=== PATIENT | female | born 1945 | race Caucasian/White ===

== ENCOUNTER 2016-08-08 12:36 | Emergency (ER) | payer MEDICARE, BC ==
[2016-08-08 13:28] VITALS: BP 127/76
[2016-08-08] MEDS ORDERED: Ketorolac 60 MG/2 ML SDV IM ONE (14:06)
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
--- NOTE | 2016-08-08 14:27 | CR ---
Left shoulder There is normal alignment of the glenohumeral as well as AC joints. There is no evidence for fractur e. There is calcification within the soft tissues adjacent to the greater tuberosity. Impression: 1. Soft tissue calcification consistent with calcific bursitis versus tendinitis. 2. No acute findings.
== END 2016-08-08 15:28 | disposition home or self-care (01) ==
LOC: JP.ED 12:36
DX: M77.9 Enthesopathy, unspecified (principal); I10 Essential (primary) hypertension; Z95.0 Presence of cardiac pacemaker; Z98.51 Tubal ligation status; Z98.890 Other specified postprocedural states; Z79.899 Other long term (current) drug therapy; Z88.8 Allergy status to other drugs, medicaments and biological substances; Z91.040 Latex allergy status; W18.40XA Slipping, tripping and stumbling without falling, unspecified, initial encounter
CPT/HCPCS: 36415; 73030; 85025; 96372; 99284; J1885; 99283

== ENCOUNTER 2016-09-16 10:05 | Emergency (ER) | payer MEDICARE, BC ==
[2016-09-16 12:29] VITALS: BP 133/86
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
== END 2016-09-16 14:02 ==
LOC: JP.ED 10:05
DX: I21.4 Non-ST elevation (NSTEMI) myocardial infarction (principal); I10 Essential (primary) hypertension; I42.9 Cardiomyopathy, unspecified; Z98.51 Tubal ligation status; Z95.0 Presence of cardiac pacemaker; Z79.899 Other long term (current) drug therapy; Z88.8 Allergy status to other drugs, medicaments and biological substances
CPT/HCPCS: 36415; 80053; 84484; 85025; 85610; 85730; 93005; 93010; 99285; 99285-25

== ENCOUNTER 2017-06-06 07:20 | Emergency (ER) | payer MEDICARE, BC ==
[2017-06-06 07:37] VITALS: BP 104/74
--- NOTE | 2017-06-06 09:05 | CR ---
Elbow Min 3V Rt FINDINGS: There is normal alignment. There is no evidence of fracture. No significant degenerative fi ndings are demonstrated. There is no joint effusion. The soft tissues appear unremarkable. IMPRESSION: Negative exam of the elbow.
--- NOTE | 2017-06-06 09:05 | CR ---
Knee Min 4V Rt FINDINGS:There is normal alignment. There is no fracture. There is no evidence of joint effusion. The soft tissues are unremarkable. The joint space is adequately maintained. IMPRESSION: Negative exam of the knee.
--- NOTE | 2017-06-06 09:07 | CR ---
Chest with right RIBS There is a cardiac pacemaker on the left. There are 2 intact leads. The heart and vascular structures are within normal limits. There are no infiltrates or effusions. The ribs demonstrate normal alignme nt. No fractures are seen. Impression: 1. No acute findings.
[2017-06-06] MEDS ORDERED: Ketorolac 30 MG/ML SDV IVPUSH ONE (09:20)
[2017-06-06] MEDS ORDERED: Bacitracin Oint 1 GM U/D Packet TOP ONE (09:21)
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
[2017-06-06] MEDS ORDERED: Acetaminophen/oxyCODONE 325-5 MG Tab PO ONE (09:32)
== END 2017-06-06 10:20 | disposition home or self-care (01) ==
LOC: JP.ED 07:20
DX: S51.011A Laceration without foreign body of right elbow, initial encounter (principal); S20.211A Contusion of right front wall of thorax, initial encounter; S80.01XA Contusion of right knee, initial encounter; I10 Essential (primary) hypertension; Z88.8 Allergy status to other drugs, medicaments and biological substances; Z91.040 Latex allergy status; Z79.899 Other long term (current) drug therapy; Z79.82 Long term (current) use of aspirin; W22.8XXA Striking against or struck by other objects, initial encounter
CPT/HCPCS: 71101; 73080; 73564; 96374; 99284; A9270; J1885

== ENCOUNTER 2018-06-27 13:50 | Emergency (ER) | payer MEDICARE, BC ==
[2018-06-27] MEDS ORDERED: Sodium Chloride 0.9% 1,000 ML IV SCH (14:45)
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
[2018-06-27] MEDS ORDERED: fentaNYL 100 MCG/2 ML SDV IVPUSH ONE (14:57)
[2018-06-27] MEDS: Sodium Chloride 0.9% 10 ML Syringe FLUSH PRN ×3 (15:10→15:30)
[2018-06-27] MEDS: Sodium Chloride 0.9% 100 ML IV SCH ×2 (15:28→15:30)
[2018-06-27] MEDS: Iopamidol 612 MG/ML 100 ML Bottle IV SCH ×2 (15:28→15:30)
--- NOTE | 2018-06-27 15:47 | CRLCT ---
INDICATION: epigastric pain CT ABDOMEN AND PELVIS WITH CONTRAST TECHNIQUE: Multidetector CT imaging was performed through the abdomen and pelvis following intravenous contrast administration using 100 mL Isovue 300. Coronal and sagittal reconstructions were generated. COMPARISON: None. FINDINGS: Lower chest: Minimal right basilar lung atelectasis. Cardiac pacemaker. Liver: Within normal limits. Gallbladder and bile ducts: Partially contracted gallbladder. No gallbladder wall thickening or calcified gallstones. No biliary dilation identified. Pancreas: Unremarkable. Spleen: Normal. Adrenals: No nodules or masses. 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 No suspicious renal masses or hydronephrosis. No bladder mass or definite wall thickening. Gastrointestinal tract: Postoperative changes at the esophagogastric junction consistent with prior Derrek fundoplication. Nonspecific mild distention of the stomach with gas and fluid. Normal caliber small bowel without wall thickening or obstruction. Multiple sigmoid colon diverticula without evidence of diverticulitis. Vascular structures: Normal for age. Peritoneum: No free air, abscess, or significant free fluid. Lymph nodes: No pathologically enlarged nodes identified. Reproductive organs: Small calcifications within the uterus consistent with small degenerated fibroids. Bones: Mild spinal degenerative changes. IMPRESSION: 1. No acute abnormality identified. No cause for the patient`s symptoms is demonstrated. 2. Nonacute findings as detailed above. FAREED VARGAS MD [employer] Dictated by Kermit Vargas MD @ 06/27/2018 3:46:00 PM Dictated by: Kermit Vargas MD @ 06/27/2018 15:46:31 (Electronically Signed)
[2018-06-27] MEDS ORDERED: HYDROmorphone 1 MG/ML Syringe IVPUSH ONE (15:48)
[2018-06-27 17:54] VITALS: BP 124/67
== END 2018-06-27 17:55 | disposition home or self-care (01) ==
LOC: JP.ED 13:50
DX: R10.13 Epigastric pain (principal); Z79.899 Other long term (current) drug therapy; Z91.040 Latex allergy status; Z88.8 Allergy status to other drugs, medicaments and biological substances
CPT/HCPCS: 36415; 74177; 80053; 81001; 83605; 84484; 85025; 96361; 96374; 96375; 99284; J1170; J3010; J7030; Q9967

== ENCOUNTER 2018-06-29 06:40 | Day surgery (SDC) | payer MEDICARE, BC ==
[2018-06-29] MEDS ORDERED: Propofol 200 MG/20 ML SDV ONE (07:26)
[2018-06-29] MEDS ORDERED: Ondansetron 4 MG/2 ML SDV ONE (07:26)
[2018-06-29] MEDS ORDERED: Dexamethasone 4 MG/ML SDV ONE (07:26)
[2018-06-29] MEDS ORDERED: Glycopyrrolate 0.2 MG/ML 5 ML MDV ONE (07:26)
[2018-06-29] MEDS ORDERED: Neostigmine Methylsulfate 1 MG/ML 5 ML Syringe ONE (07:26)
[2018-06-29] MEDS ORDERED: Rocuronium 50 MG/5 ML Vial ONE (07:26)
[2018-06-29] MEDS ORDERED: Succinylcholine 200 MG/10 ML MDV ONE (07:26)
[2018-06-29] MEDS ORDERED: fentaNYL 250 MCG/5 ML SDV ONE (07:29)
[2018-06-29] MEDS ORDERED: Sodium Chloride 0.9% 1,000 ML IV SCH (07:45)
[2018-06-29] MEDS ORDERED: metroNIDAZOLE/Normal Saline 500 MG in Premix Bag 1 BAG IV ONE (07:45)
[2018-06-29] MEDS ORDERED: diphenhydrAMINE 50 MG/ML SDV IVPUSH PRN (07:50)
[2018-06-29] MEDS ORDERED: Zolpidem 5 MG Tab PO PRN (07:50)
[2018-06-29] MEDS ORDERED: Docusate Sodium 100 MG Cap PO PRN (07:50)
[2018-06-29] MEDS ORDERED: hydrOXYzine HCl 100 MG/2 ML SDV IM PRN (07:50)
[2018-06-29] MEDS ORDERED: Benzocaine/Cetylpyridinium/Menthol Lozenge MUCMEM PRN (07:50)
[2018-06-29] MEDS ORDERED: ceFAZolin 2 GM in Premix Bag 1 BAG IV ONE (07:55)
[2018-06-29] MEDS ORDERED: Ropivacaine 31 ML, Dexamethasone 8 MG, EPINEPHrine 0.4 MG, Sodium Chloride 0.9% 46.6 ML NERVRT SCH ×4 (08:00)
[2018-06-29] MEDS ORDERED: Bupivacaine 0.5% 50 ML MDV ONE (08:48)
[2018-06-29] MEDS ORDERED: Lidocaine 1% with EPINEPHrine 1:100,000 50 ML MDV ONE (08:49)
[2018-06-29] MEDS ORDERED: Ketorolac 60 MG/2 ML SDV ONE (08:57)
[2018-06-29] MEDS ORDERED: Sugammadex Sodium 200 MG/2 ML VIAL ONE (09:11)
[2018-06-29] MEDS ORDERED: Acetaminophen/HYDROcodone 325-5 MG Tab PO PRN (10:26)
--- NOTE | 2018-06-29 15:03 | OR ---
DATE OF PROCEDURE: 06/29/2018 SURGEON: Vito Steiner MD PROCEDURE: Laparoscopic cholecystectomy. PREOPERATIVE DIAGNOSES: Cholelithiasis, cholecystitis. POSTOPERATIVE DIAGNOSES: Cholelithiasis, cholecystitis. RISKS: Risks, benefits, alternatives, and limitations including, but not limited to infection, bleeding, perforation of abdominal structures, requirement for open surgery, cystic duct leak, or common bile duct injury were explained to the patient, who wished to proceed. PROCEDURE IN DETAIL: The patient was placed in supine position. A supraumbilical curvilinear incision was made. A Veress needle was used to enter the abdomen without abnormality and a drop test was performed without abnormality. Two additional 5 and a 10 mm port were entered under direct visualization. The gallbladder was retracted cephalad. The infundibulum was retracted inferolaterally. Using blunt dissection, a "clear view" of the gallbladder was obtained with a single pulsatile structure entering the gallbladder and a single nonpulsatile structure entering the gallbladder. The duct and artery were doubly clipped x3. The clips were all the way across the tubular structures. The remaining one-third of the gallbladder was removed off the gallbladder bed without difficulty. The gallbladder was then delivered through the superior port without difficulty. The gallbladder bed was inspected. No evidence of bleeding or abnormality. The patient also requested review of her hiatal hernia repair. Lifting up the liver, there were dense adhesions and the wrap appeared to be intact, however, could not be investigated further due to the current setup of this surgery, and will be further evaluated with a CT scan. The ports were removed and repaired with 0 Vicryl and 4-0 Vicryl. Dressings were applied. The patient tolerated the procedure well. Vito Steiner MD /[id number]
[2018-06-29 16:51] VITALS: BP 104/59
== END 2018-06-29 17:30 ==
LOC: JP.SDS 06:40 → JP.2SS 07:50 → JP.SDS 17:30
PROVIDERS: ATTEND Surgery
DX: K81.1 Chronic cholecystitis (principal); K44.9 Diaphragmatic hernia without obstruction or gangrene; I11.0 Hypertensive heart disease with heart failure; I50.22 Chronic systolic (congestive) heart failure; Z79.899 Other long term (current) drug therapy
CPT/HCPCS: 36415; 47562; 85027; C9399; J0171; J0330; J0690; J1100; J1885; J2405; J2704; J2710; J2795; J3010; J3410; J3490; J7030; J7050; 88304

== ENCOUNTER 2018-07-03 09:54 | Emergency (ER) | payer MEDICARE, BC ==
[2018-07-03 10:09] VITALS: BP 104/64
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
--- NOTE | 2018-07-03 11:39 | CRLCT ---
INDICATION: Paraesthesias right arm for the last 4 days. COMPARISON: CT head February 02, 2018. TECHNIQUE: CT head without intravenous contrast. FINDINGS: No intracranial hemorrhage. No mass lesions. No evidence of shift of the midline structures. Periventricular low densities secondary to small vessel disease. No interval change. IMPRESSION: 1. No intracranial hemorrhage. 2. No mass lesions or shift of the midline structures. 3. Periventricular low density secondary to small vessel disease. 4. No interval change. Please note that all CT scans at this facility use dose modulation, iterative reconstruction, and/or weight-based dosing when appropriate to reduce radiation dose to as low as reasonably achievable. Dictated by Sandra Cotter MD @ Jul 03 2018 11:33AM Signed by Dr. Sandra Cotter @ Jul 03 2018 11:38AM
== END 2018-07-03 11:54 | disposition home or self-care (01) ==
LOC: JP.ED 09:54
DX: R20.2 Paresthesia of skin (principal); Z79.82 Long term (current) use of aspirin; Z79.899 Other long term (current) drug therapy; Z91.040 Latex allergy status; Z88.8 Allergy status to other drugs, medicaments and biological substances
CPT/HCPCS: 70450; 99283; 99284-25

== ENCOUNTER 2018-07-09 08:45 | Day surgery (SDC) | payer MEDICARE, BC ==
[~2018-07-09 08:45] MED LIST: Midazolam 1 MG/ML 2 ML SDV ONE; Propofol 200 MG/20 ML SDV ONE; fentaNYL 100 MCG/2 ML SDV ONE
[2018-07-09] MEDS ORDERED: Dextrose 5%-Lactated Ringers 1,000 ML IV SCH (09:30)
[2018-07-09] MEDS ORDERED: Pantoprazole 40 MG Vial IVPUSH ONE (11:55)
[2018-07-09 13:04] VITALS: BP 105/57
--- NOTE | 2018-07-16 13:44 | OR ---
DATE OF PROCEDURE: 07/09/2018 PREOPERATIVE DIAGNOSIS: Epigastric pain. POSTOPERATIVE DIAGNOSIS: Epigastric pain associated with mild to moderate distal gastritis. OPERATIVE PROCEDURE: Esophagogastroduodenoscopy with antral biopsies for CLOtest. ANESTHESIA: IV sedation. INDICATION FOR PROCEDURE: A 73-year-old status post a laparoscopic cholecystectomy per Dr. Steiner on 06/29/2018. She also previously had a Derrek fundoplication around 10 years ago. She presents now with ongoing epigastric burning pain and is referred for upper GI endoscopy. Potential risks of the procedure including bleeding and perforation were discussed, and the patient wishes to proceed. DETAILS OF PROCEDURE: The patient was taken to the operating room, placed in a left lateral decubitus position. IV sedation was administered, after which the upper GI endoscope was passed orally through the length of the esophagus and the stomach with retroflexion view of the fundus, and thereafter through the pyloric channel into the proximal duodenum. Findings included normal hypopharynx, larynx, upper esophageal sphincter, and esophageal body. At the EG junction, no significant hiatal hernia was noted. The patient had a persistent Derrek effect and no significant inflammation was noted at the esophagogastric junction. Within the stomach, a small amount of retained bile was present in the distal body of the stomach and extending into the antrum. There was [id number] gastritis with patchy reddened areas. No erosions or ulcers were seen. The pyloric channel and the duodenum junction of the third and fourth portions were unremarkable. At this point, biopsies were obtained from the antrum and sent for CLOtest for H. pylori. Minimal bleeding from the biopsy sites was seen and the procedure was then concluded. The patient was taken to the recovery room in satisfactory condition. The patient will be given Protonix 40 mg IV in the recovery room and started on Protonix 40 mg daily and these will be called in. and she is instructed she continues somewhat sparingly on a p.r.n. basis as needed for the discomfort. Follow up with Dr. Fay at [facility] on 07/18/2018. Brooks Fay MD /[id number]
== END 2018-07-09 13:15 | disposition home or self-care (01) ==
LOC: JP.SDS 08:45
PROVIDERS: ATTEND Surgery
DX: K29.70 Gastritis, unspecified, without bleeding (principal); I11.0 Hypertensive heart disease with heart failure; I50.9 Heart failure, unspecified; I43 Cardiomyopathy in diseases classified elsewhere; E78.5 Hyperlipidemia, unspecified; Z98.890 Other specified postprocedural states
CPT/HCPCS: 43239; 87081; C9113; J2250; J2704; J3010; J7042

== ENCOUNTER 2018-11-16 14:18 | Emergency (ER) | payer MEDICARE, BC ==
[2018-11-16 14:40] VITALS: BP 114/70; PULSE 86
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
--- NOTE | 2018-11-16 15:42 | CRLCT ---
INDICATION: Syncope with head injury TECHNIQUE: Head CT without contrast. COMPARISON: None FINDINGS: CSF spaces: Within normal limits for age. Brain parenchyma: There are nonspecific low attenuation white matter changes consistent with chronic microvascular disease. No sign of mass, hemorrhage, or midline shift. Skull base and calvarium: The visualized paranasal sinuses and mastoid air cells demonstrate no acute or significant findings. The visualized orbits are grossly unremarkable. No skull fractures. There is intracranial atherosclerosis. IMPRESSION: 1. No acute findings. 2. Nonspecific white matter disease, typical of chronic microvascular disease. Please note that all CT scans at this facility use dose modulation, iterative reconstruction, and/or weight-based dosing when appropriate to reduce radiation dose to as low as reasonably achievable. Dictated by Simran Motta MD @ Nov 16 2018 3:39PM Signed by Dr. Simran Motta @ Nov 16 2018 3:41PM
--- NOTE | 2018-11-16 17:05 | CRLCR ---
INDICATION: Syncope TECHNIQUE: Chest 2 views. COMPARISON: October 16, 2015 FINDINGS: Cardiovascular and mediastinum: Heart size and vasculature are normal in caliber and appearance. Mediastinum is within normal limits. Left-sided AICD appears stable in position and intact. Lungs and pleural spaces: Lungs are clear. No sign of infiltrate or mass. No sign of pleural effusion. No pneumothorax. Bones and soft tissues: Cerclage wires overlie the lower cervical spine. There are surgical clips in the right upper quadrant. IMPRESSION: No sign of acute disease. Dictated by Simran Motta MD @ Nov 16 2018 5:02PM Signed by Dr. Simran Motta @ Nov 16 2018 5:04PM
== END 2018-11-16 17:39 ==
LOC: JP.ED 14:18
DX: R55 Syncope and collapse (principal); I10 Essential (primary) hypertension; Z91.040 Latex allergy status; Z88.8 Allergy status to other drugs, medicaments and biological substances; Z79.899 Other long term (current) drug therapy; Z95.0 Presence of cardiac pacemaker
CPT/HCPCS: 36415; 70450; 71046; 80053; 84484; 85025; 93005; 93010; 99285; 99285-25

== ENCOUNTER 2019-12-17 09:51 | Inpatient (IN) | payer MEDICARE, BC ==
[2019-12-17] MEDS: Dextrose 5%-Lactated Ringers 1,000 ML IV SCH ×2 (11:01→18:20)
[2019-12-17] MEDS ORDERED: Propofol 200 MG/20 ML SDV ONE (11:09)
[2019-12-17] MEDS ORDERED: fentaNYL 100 MCG/2 ML SDV ONE (11:09)
[2019-12-17] MEDS ORDERED: Midazolam 1 MG/ML 2 ML SDV ONE (11:09)
--- NOTE | 2019-12-17 15:52 | CT ---
Abdomen Pelvis wo Cont CLINICAL HISTORY: Abdominal pain, post endoscopy COMPARISON: None. TECHNIQUE: Axial tomographic images are obtained from the dome of the diaphragm to the pubic symphysis without IV contrast enhancement. No oral contrast was used. Auto dosage reduction and iterative reconstruction techniques employed. FINDINGS: The lung bases are clear. There is a small hiatal hernia. Patient has had previous gastric surgery. There is some gaseous distention of the stomach and small bowel. Colon is distended related to prior colonoscopy. There is some thickening of the cecal wall near the tip. The appendix is not definitively identified. The liver shows no mass or biliary dilatation. The gallbladder has been removed. The spleen has a normal size and shape. The pancreas shows no mass or inflammatory change. The adrenal glands appear normal bilaterally. The kidneys show no stones or hydronephrosis. The aorta shows atheromatous plaque without aneurysm. There is no suspicious retroperitoneal adenopathy. There is some scattered uterine calcifications likely related to fibroids. IMPRESSION: Diffuse GI distention due to upper and lower endoscopy There is some cylindrical thickening of the cecum. This may represent a focal colitis
[2019-12-17] MEDS ORDERED: HYDROmorphone 1 MG/ML Syringe IVPUSH ONE (16:00)
[2019-12-17] MEDS ORDERED: HYDROmorphone/Normal Saline 15 MG/30 ML PCA IV PRN (17:12)
[2019-12-17] MEDS ORDERED: Ondansetron 4 MG/2 ML SDV IVPUSH PRN (17:14)
[2019-12-17] MEDS ORDERED: Albuterol 8 GM Inhaler INH PRN (17:25)
[2019-12-17] MEDS ORDERED: Metoprolol Succinate 25 MG Tab.ER PO ONE (18:00)
[2019-12-17] MEDS ORDERED: Naloxone 0.4 MG/ML SDV IV PRN (18:00)
[2019-12-17] MEDS: Montelukast 10 MG Tab PO SCH (22:34)
[2019-12-17] MEDS: Gabapentin 300 MG Cap PO SCH (22:34)
[2019-12-17] MEDS: ENTRESTO PO SCH (22:34)
[2019-12-17] MEDS: Melatonin 3 MG Tab PO SCH (22:34)
[2019-12-17] MEDS: valACYclovir 1,000 MG Tab PO SCH (22:53)
[2019-12-18] MEDS: Pantoprazole 40 MG Tab.CR PO SCH (07:33)
[2019-12-18] MEDS: valACYclovir 1,000 MG Tab PO SCH ×2 (09:41→20:52)
[2019-12-18] MEDS: Aspirin 81 MG Tab.EC PO SCH (09:43)
[2019-12-18] MEDS: Cetirizine 10 MG Tab PO SCH (09:43)
[2019-12-18] MEDS: Gabapentin 300 MG Cap PO SCH ×3 (09:43→20:52)
[2019-12-18] MEDS: Spironolactone 25 MG Tab PO SCH (10:47)
[2019-12-18] MEDS: ENTRESTO PO SCH ×2 (10:47→20:53)
[2019-12-18] MEDS: Metoprolol Succinate 25 MG Tab.ER PO SCH (10:47)
--- NOTE | 2019-12-18 13:05 | PN ---
DATE OF SERVICE: 12/18/2019 SUBJECTIVE: Katelynn remains to have abdominal pain in the left quadrant. She had an EGD and colonoscopy yesterday, which revealed edema, and the colonoscopy revealed colitis. She continues to have pain, and she rates her pain as 3/5. Vital signs have been stable. Remainder of review of systems negative for any pertinent positives and negatives. OBJECTIVE: GENERAL: Katelynn Bill is a pleasant 74-year-old female. VITAL SIGNS: TPR at 0725 is 98.6, 80, 16, blood pressure is 76/42. HEENT: Negative. NECK: Supple. HEART: Regular rate and rhythm. LUNGS: Clear. ABDOMEN: She has marked tenderness in the right mid and lower quadrants. EXTREMITIES: Without peripheral edema. ASSESSMENT: 1. Status post EGD and colonoscopy. Biopsies pending. 2. Colitis. Date 12/17/2019. Surgeon: Brooks Fay MD. PLAN: Consult with Fritz Pereira MD, regarding colitis. Dr. Fay will discuss case with Dr. Pereira. Regular diet. Change status to inpatient for abdominal pain and colitis. We will evaluate p.r.n. or in a.m. Renita Ireland PA-C /[id number]
[2019-12-18] MEDS: Dextrose 5%-Lactated Ringers 1,000 ML IV SCH (13:45)
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
[2019-12-18] MEDS ORDERED: Ciprofloxacin 500 MG Tab PO SCH (15:15)
[2019-12-18] MEDS ORDERED: metroNIDAZOLE 250 MG Tab PO SCH (15:15)
[2019-12-18] MEDS ORDERED: Acetaminophen 325 MG Tab PO PRN (15:20)
[2019-12-18] MEDS ORDERED: Sodium Chloride 0.9% 500 ML IV ONE (15:30)
[2019-12-18] MEDS: metroNIDAZOLE/Normal Saline 500 MG in Premix Bag 1 BAG IV SCH (16:10)
[2019-12-18] MEDS: predniSONE 20 MG Tab PO SCH (16:10)
[2019-12-18] MEDS: Ciprofloxacin in D5W 400 MG in Premix Bag 1 BAG IV SCH ×2 (16:10)
[2019-12-18] MEDS: sulfaSALAzine 500 MG Tab PO SCH ×2 (16:10→21:00)
[2019-12-18] MEDS: Lactobacillus Rhamnosus GG (Probiotic) Cap PO SCH ×2 (16:20→20:52)
[2019-12-18] MEDS: Melatonin 3 MG Tab PO SCH (20:52)
[2019-12-18] MEDS: Montelukast 10 MG Tab PO SCH (20:52)
[2019-12-19] MEDS: Dextrose 5%-Lactated Ringers 1,000 ML IV SCH (00:49)
[2019-12-19] MEDS: metroNIDAZOLE/Normal Saline 500 MG in Premix Bag 1 BAG IV SCH ×3 (00:51→16:54)
[2019-12-19] MEDS: Ciprofloxacin in D5W 400 MG in Premix Bag 1 BAG IV SCH ×4 (04:43→15:32)
[2019-12-19] MEDS: sulfaSALAzine 500 MG Tab PO SCH ×2 (05:01→10:34)
[2019-12-19] MEDS: Gabapentin 300 MG Cap PO SCH ×3 (08:28→20:36)
[2019-12-19] MEDS: Lactobacillus Rhamnosus GG (Probiotic) Cap PO SCH ×2 (08:28→20:36)
[2019-12-19] MEDS: Pantoprazole 40 MG Tab.CR PO SCH (08:29)
[2019-12-19] MEDS: Aspirin 81 MG Tab.EC PO SCH (08:29)
[2019-12-19] MEDS: predniSONE 20 MG Tab PO SCH (08:29)
[2019-12-19] MEDS: ENTRESTO PO SCH ×2 (08:30→20:37)
[2019-12-19] MEDS: valACYclovir 1,000 MG Tab PO SCH ×2 (08:30→20:37)
[2019-12-19] MEDS: Cetirizine 10 MG Tab PO SCH (08:30)
--- NOTE | 2019-12-19 08:52 | PN ---
DATE OF SERVICE: 12/19/2019 SUBJECTIVE: Katelynn reports an increased amount of pain. She has had a temperature max of 101.1, currently her temperature is 96.7. Oral intake 2520 and urine output 3513. She was started on IV Cipro and Flagyl and tolerating that well. Reports having a dried scaly skin lesion on her right cheek that she would like to have removed. Denies any headache, dizziness. No chest pain, shortness of breath, or cough. Pain is most severe in the right lower quadrant and she also has pain in the left lower quadrant. She had 2 bowel movements yesterday. Extremities; no pain. Neuro; negative. Psychiatric; sleeping well. No depression or anxiety. REVIEW OF SYSTEMS: Remainder of review of systems negative for any pertinent positives and negatives. OBJECTIVE: GENERAL: Katelynn Bill is a 74-year-old female. She is alert and orientated. Color pale. VITAL SIGNS: TPR at 0700, 96.7; 68; 16; blood pressure 101/41. HEENT: Negative. NECK: Supple. HEART: Regular rate and rhythm. LUNGS: Clear. ABDOMEN: Remains to be quite tender in the right and left lower quadrant. EXTREMITIES: Without peripheral edema. ASSESSMENT: 1. Colitis. 2. Status post esophagogastroduodenoscopy and colonoscopy. Biopsies pending. Date of procedure: 12/17/2019. PLAN: Appointment to be set up with Brooks Fay MD, for excision of right cheek skin lesion. It was made for 01/01/2020 at 10 a.m. To follow up when discharged with Tequila Bird in 1 week. Biopsies are pending. We will continue IV antibiotics and discharge will be discussed with Fritz Pereira MD. We will evaluate p.r.n. or in a.m. Renita Ireland PA-C /[id number]
--- NOTE | 2019-12-19 10:26 | PCM.CONSN ---
- General Info Date of Service: 12/19/19 Subjective Update: Ms. Bill continues to experience lower abdominal pain, diarrhea has essentially resolved. She did have temperature elevation yesterday to 101 degrees. White blood cell count was elevated, she has remained hemodynamically stable. Functional Status: Reports: Tolerating Diet, Ambulating, Urinating - Review of Systems General: Reports: Fever, Weakness, Chills Pulmonary: Reports: No Symptoms Cardiovascular: Reports: No Symptoms Gastrointestinal: Reports: Abdominal Pain. Denies: Diarrhea, Difficulty Swallowing, Hematochezia, Melena, Nausea, Vomiting Genitourinary: Reports: No Symptoms - Patient Data Vitals - Most Recent: Last Vital Signs Temp 96.7 F L 12/19/19 07:00 Pulse 68 12/19/19 07:00 Resp 16 12/19/19 07:00 BP 101/41 L 12/19/19 07:00 Pulse Ox 98 12/19/19 07:00 Weight - Most Recent: 125 lb I&O - Last 24 Hours: Intake & Output 12/18/19 12/19/19 12/19/19 22:59 06:59 14:59 Intake Total 2540 1864 400 Output Total 1000 1550 700 Balance 1540 314 -300 Mickey Results Last 24 Hours: Microbiology 12/17/19 13:58 Stool Culture - Preliminary Stool / Feces - Stool, Liquid NORMAL ENTERIC JAI 2 DAYS Shiga Toxin I - Final NEGATIVE FOR SHIGA TOXIN 1 Shiga Toxin II - Final NEGATIVE FOR SHIGA TOXIN 2 REFERENCE RANGE: NEGATIVE Clostridioides difficile (PCR) - Final 12/17/19 13:01 CLOtest - Final Stomach NEGATIVE CLOTEST REFERENCE RANGE: NEGATIVE Med Orders - Current: Current Medications Acetaminophen (Tylenol) 650 mg PO Q6H PRN PRN Reason: Fever Last Admin: 12/18/19 16:19 Dose: 650 mg Documented by: Albuterol (Ventolin Hfa) 0 gm INH Q4H PRN PRN Reason: Shortness of Breath Aspirin (Halfprin) 81 mg PO DAILY [facility] Last Admin: 12/19/19 08:29 Dose: 81 mg Documented by: Cetirizine HCl (Zyrtec) 10 mg PO DAILY [facility] Last Admin: 12/19/19 08:30 Dose: 10 mg Documented by: Gabapentin (Neurontin) 300 mg PO TID [facility] Last Admin: 12/19/19 08:28 Dose: 300 mg Documented by: Hydromorphone HCl (Dilaudid [employer] 15 Mg In Ns 30 Ml) 0 mg IV ASDIRECTED PRN; Protocol PRN Reason: JEWELRY BENCH [employer] PAIN CONTROL Last Admin: 12/17/19 17:53 Dose: 15 mg Documented by: Dextrose/Lactated Ringer's (Dextrose 5%-Lactated Ringers) 1,000 mls @ 100 mls/hr IV ASDIRECTED [facility] Last Admin: 12/19/19 00:49 Dose: 100 mls/hr Documented by: Ciprofloxacin/Dextrose 400 mg/ (Premix) 200 mls @ 200 mls/hr IV Q12H [facility] Last Admin: 12/19/19 04:43 Dose: 200 mls/hr Documented by: Metronidazole 500 mg/ Premix 100 mls @ 100 mls/hr IV Q8H [facility] Last Admin: 12/19/19 08:28 Dose: 100 mls/hr Documented by: Lactobacillus Rhamnosus (Culturelle) 1 cap PO BID [facility] Last Admin: 12/19/19 08:28 Dose: 1 cap Documented by: Melatonin (Melatonin) 3 mg PO BEDTIME [facility] Last Admin: 12/18/19 20:52 Dose: 3 mg Documented by: Metoprolol Succinate (Toprol Xl) 25 mg PO DAILY [facility] Last Admin: 12/18/19 10:47 Dose: Not Given Documented by: Montelukast Sodium (Singulair) 10 mg PO BEDTIME [facility] Last Admin: 12/18/19 20:52 Dose: 10 mg Documented by: Naloxone HCl (Narcan) 0.1 mg IV ASDIRECTED PRN PRN Reason: decreased respiratory rate Ondansetron HCl (Zofran) 4 mg IVPUSH Q4H PRN PRN Reason: Nausea Last Admin: 12/17/19 21:27 Dose: 4 mg Documented by: Pantoprazole Sodium (Protonix) 40 mg PO ACBREAKFAST [facility] Last Admin: 12/19/19 08:29 Dose: 40 mg Documented by: Entresto 24mg/26mg (Tab (Ptom)) 1 each PO BID [facility] Last Admin: 12/19/19 08:30 Dose: 1 each Documented by: Spironolactone (Aldactone) 25 mg PO DAILY [facility] Last Admin: 12/18/19 10:47 Dose: Not Given Documented by: Valacyclovir HCl (Valtrex) 500 mg PO BID [facility] Last Admin: 12/19/19 08:30 Dose: 500 mg Documented by: Discontinued Medications Ciprofloxacin (Ciprofloxacin Hcl) 500 mg PO BID [facility] Last Admin: 12/18/19 15:56 Dose: Not Given Documented by: Fentanyl (Sublimaze) Confirm Administered Dose 100 mcg .ROUTE .STK-MED ONE Stop: 12/17/19 11:10 Hydromorphone HCl (Dilaudid) 1 mg IVPUSH ONETIME ONE Stop: 12/17/19 16:01 Last Admin: 12/17/19 15:56 Dose: 1 mg Documented by: Sodium Chloride (Normal Saline) 500 mls @ 250 mls/hr IV .BOLUS ONE Stop: 12/18/19 17:29 Last Admin: 12/18/19 16:00 Dose: 250 mls/hr Documented by: Metoprolol Succinate (Toprol Xl) 25 mg PO ONETIME ONE Stop: 12/17/19 18:01 Last Admin: 12/17/19 18:22 Dose: 25 mg Documented by: Metronidazole (Metronidazole) 500 mg PO Q6H [facility] Last Admin: 12/18/19 15:57 Dose: Not Given Documented by: Midazolam HCl (Versed 1 Mg/Ml) Confirm Administered Dose 2 mg .ROUTE .STK-MED ONE Stop: 12/17/19 11:10 Prednisone (Prednisone) 40 mg PO DAILY [facility] Last Admin: 12/19/19 08:29 Dose: 40 mg Documented by: Propofol (Diprivan 20 Ml) Confirm Administered Dose 200 mg .ROUTE .STK-MED ONE Stop: 12/17/19 11:10 Sulfasalazine (Sulfasalazine) 500 mg PO QID [facility] Last Admin: 12/19/19 05:01 Dose: 500 mg Documented by: - Exam Quality Assessment: DVT Prophylaxis General: Alert, Oriented, Cooperative, Moderate Distress Lungs: Clear to Auscultation, Normal Respiratory Effort Cardiovascular: Regular Rate, Regular Rhythm, No Murmurs GI/Abdominal Exam: Soft, No Organomegaly, Tender. No: Distended, Guarding, Rigid, Rebound Extremities: Non-Tender, No Pedal Edema Sepsis Event Note - Evaluation Sepsis Screening Result: No Definite Risk - Focused Exam Vital Signs: Vital Signs Temp Pulse Resp BP Pulse Ox 12/19/19 07:00 96.7 F L 68 16 101/41 L 98 12/19/19 02:37 97.0 F 66 16 104/54 L 94 L 12/19/19 01:00 93 L 12/18/19 22:43 98.3 F 72 16 85/40 L 94 L Consult PN Assessment/Plan Procedures: Procedures AGENT NOS ASSAY W/OPTIC (03/31/16) AIRWAY INHALATION TREATMENT (03/31/16) ASSAY OF CK (CPK) (10/16/15) ASSAY OF LACTIC ACID (06/27/18) ASSAY OF MAGNESIUM (12/14/13) ASSAY OF NATRIURETIC PEPTIDE (10/16/15) ASSAY OF PHOSPHORUS (12/14/13) ASSAY OF TROPONIN QUANT (11/16/18) BLOOD CULTURE FOR BACTERIA (03/31/16) BREAST TOMOSYNTHESIS BI (12/06/18) C DIFF AMPLIFIED PROBE (03/31/16) CARDIAC REHAB/MONITOR (11/21/16) CARDIOVASCULAR STRESS TEST (07/31/17) CHEST X-RAY 1 VIEW FRONTAL (10/16/15) CHEST X-RAY 2VW FRONTAL&LATL (12/14/13) COMP SCREEN MAMMOGRAM ADD-ON (04/15/16) COMPLETE CBC AUTOMATED (06/29/18) COMPLETE CBC W/AUTO DIFF WBC (11/16/18) COMPREHEN METABOLIC PANEL (11/16/18) COMPUTER DX MAMMOGRAM ADD-ON (01/22/14) CONTRAST X-RAY OF SHOULDER (07/07/17) CT ABD & PELV W/CONTRAST (06/27/18) CT ANGIOGRAPHY HEAD (02/05/18) CT ANGIOGRAPHY NECK (02/05/18) CT HEAD/BRAIN W/O DYE (11/16/18) CT LUMBAR SPINE W/O DYE (02/21/17) CT NECK SPINE W/O DYE (02/21/17) CT THORAX W/DYE (08/03/18) CULTURE AEROBIC IDENTIFY (03/31/16) CULTURE OTHR SPECIMN AEROBIC (03/31/16) CULTURE SCREEN ONLY (07/09/18) DIAGNOSTIC COLONOSCOPY (01/21/15) DRAIN/INJ JOINT/BURSA W/O US (10/20/16) EGD BIOPSY SINGLE/MULTIPLE (07/09/18) ELECTROCARDIOGRAM REPORT (10/16/15) ELECTROCARDIOGRAM TRACING (11/16/18) EMERGENCY DEPT VISIT (11/16/18) EMERGENCY DEPT VISIT (07/03/18) EMERGENCY DEPT VISIT (02/02/18) EMERGENCY DEPT VISIT (06/06/17) EMERGENCY DEPT VISIT (09/16/16) EMERGENCY DEPT VISIT (08/08/16) EMERGENCY DEPT VISIT (03/31/16) EMERGENCY DEPT VISIT (11/04/13) EXTRACRANIAL BILAT STUDY (09/25/18) EXTREMITY STUDY (06/27/16) FUNGI IDENTIFICATION MOLD (03/31/16) HEPATOBIL SYST IMAGE W/DRUG (06/28/18) HOT OR COLD PACKS THERAPY (11/15/19) HT MUSCLE IMAGE SPECT MULT (07/31/17) HYDRATE IV INFUSION ADD-ON (06/27/18) INJ PARAVERT F JNT L/S 1 LEV (10/17/17) INJ TENDON SHEATH/LIGAMENT (10/03/19) INJECTION FOR SHOULDER X-RAY (07/07/17) LAPAROSCOPIC CHOLECYSTECTOMY (06/29/18) MANUAL THERAPY 1/> REGIONS (11/15/19) METABOLIC PANEL TOTAL CA (03/31/16) OFFICE/OUTPATIENT VISIT EST (10/03/19) OFFICE/OUTPATIENT VISIT NEW (08/11/16) POLYSOM 6/>YRS CPAP 4/> PARM (01/15/18) PROTHROMBIN TIME (09/16/16) PT EVAL LOW COMPLEX 20 MIN (11/15/19) PT EVALUATION (12/16/15) PT RE-EVAL EST PLAN CARE (12/13/17) ROUTINE VENIPUNCTURE (11/16/18) SCR MAMMO BI INCL CAD (12/06/18) SMEAR GRAM STAIN (03/31/16) STOOL CULTR AEROBIC BACT EA (03/31/16) THER/PROPH/DIAG INJ IV PUSH (06/27/18) THER/PROPH/DIAG INJ SC/IM (08/08/16) THER/PROPH/DIAG IV INF ADDON (03/31/16) THER/PROPH/DIAG IV INF INIT (03/31/16) THERAPEUTIC EXERCISES (01/03/18) THROMBOPLASTIN TIME PARTIAL (09/16/16) TRANSVAGINAL US NON-OB (06/15/15) TTE W/DOPPLER COMPLETE (02/13/18) TX/PRO/DX INJ NEW DRUG ADDON (06/27/18) TX/PROPH/DG ADDL SEQ IV INF (03/31/16) URINALYSIS AUTO W/SCOPE (06/27/18) US EXAM PELVIC COMPLETE (06/15/15) X-RAY EXAM CHEST 2 VIEWS (11/16/18) X-RAY EXAM HIPS BI 2 VIEWS (09/25/18) X-RAY EXAM KNEE 4 OR MORE (06/06/17) X-RAY EXAM L-2 SPINE 4/>VWS (02/06/17) X-RAY EXAM NECK SPINE 2-3 VW (07/10/18) X-RAY EXAM OF ELBOW (06/06/17) X-RAY EXAM OF FOOT (11/21/19) X-RAY EXAM OF HAND (10/11/18) X-RAY EXAM OF SHOULDER (08/08/16) X-RAY EXAM UNILAT RIBS/CHEST (06/06/17) Problem List Initiated/Reviewed/Updated: Yes My Orders Last 24 Hours: My Active Orders 12/18/19 15:16 Consult to Physical Therapy [PT Evaluation and Treatment] [CONS] Routine 12/18/19 15:18 Blood Culture x2 Reflex Set [OM.PC] Urgent 12/18/19 15:20 Acetaminophen [TylenoL] 650 mg PO Q6H PRN 12/18/19 15:35 CULTURE BLOOD [BC] Urgent 12/18/19 15:40 CULTURE BLOOD [BC] Urgent 12/18/19 16:00 Ciprofloxacin in D5W [Cipro in D5W 400 MG/200 ML] 400 mg Premix Bag 1 bag IV Q12H Lactobacillus Rhamnosus GG [Culturelle] 1 cap PO BID 12/18/19 17:00 metroNIDAZOLE/Normal Saline [Flagyl 500 MG in NS 100 ML] 500 mg Premix Bag 1 bag IV Q8H Plan: ASSESSMENT AND RECOMMENDATIONS [id number] history of diarrhea, evidence of colitis in the right colon noted on colonoscopy. Biopsies from colonoscopy as well as culture results are pending. Seems to be more likely related to infection at this point with fever and elevation in white blood cell count. -Ciprofloxacin and Flagyl pending culture results
[2019-12-19] MEDS ORDERED: Sodium Chloride 0.9% 1,000 ML IV SCH (10:30)
[2019-12-19] MEDS: Spironolactone 25 MG Tab PO SCH (10:32)
[2019-12-19] MEDS: Metoprolol Succinate 25 MG Tab.ER PO SCH (10:32)
[2019-12-19] MEDS: Nystatin Topical Powder 15 GM Bottle TOP SCH ×2 (15:31→20:36)
[2019-12-19] MEDS: Melatonin 3 MG Tab PO SCH (20:36)
[2019-12-19] MEDS: Montelukast 10 MG Tab PO SCH (20:37)
[2019-12-20] MEDS: metroNIDAZOLE/Normal Saline 500 MG in Premix Bag 1 BAG IV SCH ×2 (02:04→09:15)
[2019-12-20] MEDS: Ciprofloxacin in D5W 400 MG in Premix Bag 1 BAG IV SCH ×2 (04:13)
[2019-12-20] MEDS: Pantoprazole 40 MG Tab.CR PO SCH (07:35)
[2019-12-20 07:36] VITALS: BP 106/54; PULSE 65
[2019-12-20] MEDS ORDERED: HYDROmorphone 2 MG Tab PO PRN (08:56)
[2019-12-20] MEDS ORDERED: Magnesium Oxide 400 MG Tab PO SCH (09:00)
[2019-12-20] MEDS: Gabapentin 300 MG Cap PO SCH (09:15)
[2019-12-20] MEDS: Cetirizine 10 MG Tab PO SCH (09:15)
[2019-12-20] MEDS: Lactobacillus Rhamnosus GG (Probiotic) Cap PO SCH (09:15)
[2019-12-20] MEDS: valACYclovir 1,000 MG Tab PO SCH (09:15)
[2019-12-20] MEDS: Aspirin 81 MG Tab.EC PO SCH (09:16)
[2019-12-20] MEDS: Spironolactone 25 MG Tab PO SCH (09:16)
[2019-12-20] MEDS: ENTRESTO PO SCH (09:17)
[2019-12-20] MEDS: Nystatin Topical Powder 15 GM Bottle TOP SCH (09:17)
[2019-12-20] MEDS ORDERED: Magnesium Sulfate/Water 2 GM in Premix Bag 1 BAG IV ONE (09:30)
[2019-12-20] MEDS: Metoprolol Succinate 25 MG Tab.ER PO SCH (09:36)
--- NOTE | 2019-12-20 10:11 | PCM.DCSUM1 ---
Discharge Summary - Hospital Course Brief History: Ms. Bill is a 74-year-old woman who was admitted through the emergency department with severe abdominal pain and diarrhea following colonoscopy, secondary to underlying infectious colitis. - Discharge Data Discharge Date: 12/20/19 Discharge Disposition: Home, Self-Care 01 Condition: Good - Referral to Home Health Primary Care Physician: Tequila Bird CNM - Discharge Diagnosis/Problem(s) (1) Abdominal pain SNOMED Code(s): 87232117 ICD Code: R10.9 - UNSPECIFIED ABDOMINAL PAIN Status: Acute Current Visit: Yes (2) Infectious colitis SNOMED Code(s): 80070147 ICD Code: A09 - INFECTIOUS GASTROENTERITIS AND COLITIS, UNSPECIFIED Status: Acute Current Visit: Yes - Patient Summary/Data Consults: Consultations 12/18/19 08:23 Consult to Physician [CONS] Routine Consulting Provider: Fritz Pereira Call Completed to Consulting Physician: No: Dr. Fay will discuss case 12/18/19 15:16 Consult to Physical Therapy [PT Evaluation and Treatment] [CONS] Routine Please Evaluate and Treat. PT Reason for Consult: L neck and shoulder pain This query below is only for informational purposes and is not editable. Admission Diagnosis/Problem: Abdominal pain Hospital Course: Ms. Bill is a 74-year-old woman who was admitted by Dr. Fay for further management of colitis. She reports that she has had difficulty with diarrhea for the past 2 months, typically about 5 stools per day, no bleeding or evidence of blood in the stool. Eating seems to trigger diarrhea, she has not had regular diarrhea at night. Colonoscopy was performed by Dr. Fay and showed evidence of colitis in the cecum and ascending colon. Biopsies were obtained, results of which are pending at this time. She has had achy pain in the right abdomen over the past 2 months. She denies any fevers chills or sweats. White blood cell count was found to be elevated, cultures from colonoscopy are also pending, C. difficile found to be negative. Because of her severe pain and ongoing diarrhea she was admitted to the hospital for further evaluation and management. She did develop a fever on the day after admission and it was felt most likely that the colitis was infectious in nature. She was started on IV ciprofloxacin as well as IV Flagyl and over the next few days abdominal pain and diarrhea essentially resolved. Prior to discharge she was tolerating a regular diet without significant difficulty. Activity will be as tolerated and she will remain on a regular diet. Follow-up appointment will be scheduled with her primary care provider within 1 week. - Patient Instructions Diet: Usual Diet as Tolerated Activity: As Tolerated Other/Special Instructions: Please schedule follow-up appointment with Tequila Bird within 1 week. - Discharge Plan *PRESCRIPTION DRUG MONITORING PROGRAM REVIEWED*: Not Applicable *COPY OF PRESCRIPTION DRUG MONITORING REPORT IN PATIENT JACINTA: Not Applicable Prescriptions/Med Rec: Ciprofloxacin HCl [Cipro] 500 mg PO BID #14 tablet Lactobacillus Rhamnosus GG [Culturelle] 1 cap PO BID #60 cap metroNIDAZOLE [Flagyl] 500 mg PO Q8H #21 tab Nystatin [Nystop] 60 gm TP TID #60 gm Home Medications: Home Meds Cholecalciferol (Vitamin D3) [Vitamin D] 5,000 unit PO DAILY 11/04/13 [History] Multivit with Calcium,Iron,Min [Essential Daily] 1 tab PO DAILY 11/04/13 [History] Rosuvastatin [Crestor] 10 mg PO DAILY 11/04/13 [History] [place]-3/DHA/Epa/Fish Oil [Fish Oil Dr 500 mg Softgel] 1,000 mg PO DAILY 01/19/15 [History] Fluticasone Propionate [Flonase Allergy Relief] 2 spray CHARBEL DAILY PRN 06/06/17 [History] Gabapentin [Neurontin] 300 mg PO TID 06/06/17 [History] Albuterol [Ventolin HFA] 2 puff INH Q4H PRN 07/31/17 [History] valACYclovir [Valtrex] 500 mg PO BID 10/16/17 [History] Cetirizine [ZyrTEC] 10 mg PO DAILY 06/28/18 [History] Aspirin [Pamela Chewable Aspirin] 81 mg PO DAILY 11/21/19 [History] Sacubitril/Valsartan [Entresto 24 mg-26 mg Tablet] 1 tab PO BID 11/21/19 [History] Benzonatate [Tessalon Perle] 100 mg PO TID 12/13/19 [History] Metoprolol Succinate [Toprol Xl] 25 mg PO DAILY 12/13/19 [History] Montelukast [Singulair] 10 mg PO DAILY 12/13/19 [History] Pantoprazole Sodium [Protonix] 40 mg PO DAILY 12/13/19 [History] Spironolactone [Aldactone] 25 mg PO DAILY 12/13/19 [History] Melatonin 2.5 mg PO BEDTIME 12/17/19 [History] Ciprofloxacin HCl [Cipro] 500 mg PO BID #14 tablet 12/20/19 [Rx] Lactobacillus Rhamnosus GG [Culturelle] 1 cap PO BID #60 cap 12/20/19 [Rx] Nystatin [Nystop] 60 gm TP TID #60 gm 12/20/19 [Rx] metroNIDAZOLE [Flagyl] 500 mg PO Q8H #21 tab 12/20/19 [Rx] Referrals: Tequila Bird CNM [Primary Care Provider] - (Make an appointment in 1 week ) Brooks Fay MD [Physician] - 01/01/20 10:00 am (Appt for Excision of Right CheeK Skin Lesion to be done in clinic with local sedation) - Discharge Summary/Plan Comment DC Time >30 min.: No - Patient Data Vitals - Most Recent: Last Vital Signs Temp 97.9 F 12/20/19 07:35 Pulse 65 12/20/19 07:35 Resp 18 12/20/19 07:35 BP 106/54 L 12/20/19 07:35 Pulse Ox 96 12/20/19 07:35 Weight - Most Recent: 125 lb I&O - Last 24 hours: Intake & Output 12/19/19 12/20/19 12/20/19 22:59 06:59 14:59 Intake Total 1080 500 240 Output Total 1150 600 451 Balance -70 -100 -211 Lab Results - Last 24 hrs: Laboratory Results - last 24 hr 12/20/19 12/20/19 Range/Units 04:20 04:20 WBC 13.7 H (4.5-11.0) K/uL RBC 3.44 (3.30-5.50) M/uL Hgb 10.0 L (12.0-15.0) g/dL Hct 31.9 L (36.0-48.0) % MCV 93 (80-98) fL MCH 29 (27-31) pg MCHC 31 L (32-36) % Plt Count 231 (150-400) K/uL Neut % (Auto) 81 H (36-66) % Lymph % (Auto) 13 L (24-44) % Edmunds % (Auto) 6 (2-6) % Eos % (Auto) 0 L (2-4) % Baso % (Auto) 0 (0-1) % Sodium 143 (140-148) mmol/L Potassium 4.0 (3.6-5.2) mmol/L Chloride 110 H (100-108) mmol/L Carbon Dioxide 24 (21-32) mmol/L Anion Gap 13.0 (5.0-14.0) mmol/L BUN 12 (7-18) mg/dL Creatinine 0.8 (0.6-1.0) mg/dL Est Cr Clr Drug Dosing 49.53 mL/min Estimated GFR (MDRD) > 60 (>60) Glucose 126 H (74-106) mg/dL Calcium 9.0 (8.5-10.1) mg/dL Magnesium 1.7 L (1.8-2.4) mg/dL FRANKY Results - Last 24 hrs: Microbiology 12/17/19 13:58 Stool Culture - Final Stool / Feces - Stool, Liquid NORMAL ENTERIC JAI. NO SALMONELLA, SHIGELLA, CAMPYLOBACTER OR E.COLI O157 ISOLATED. Shiga Toxin I - Final NEGATIVE FOR SHIGA TOXIN 1 Shiga Toxin II - Final NEGATIVE FOR SHIGA TOXIN 2 REFERENCE RANGE: NEGATIVE Clostridioides difficile (PCR) - Final 12/18/19 15:35 Aerobic Blood Culture - Preliminary Blood - Arm, Left NO GROWTH AFTER 1 DAY Anaerobic Blood Culture - Preliminary NO GROWTH AFTER 1 DAY 12/18/19 15:40 Aerobic Blood Culture - Preliminary Blood - Arm, Left NO GROWTH AFTER 1 DAY Anaerobic Blood Culture - Preliminary NO GROWTH AFTER 1 DAY Med Orders - Current: Current Medications Acetaminophen (Tylenol) 650 mg PO Q6H PRN PRN Reason: Fever Last Admin: 12/18/19 16:19 Dose: 650 mg Documented by: Albuterol (Ventolin Hfa) 0 gm INH Q4H PRN PRN Reason: Shortness of Breath Aspirin (Halfprin) 81 mg PO DAILY [facility] Last Admin: 12/20/19 09:16 Dose: 81 mg Documented by: Cetirizine HCl (Zyrtec) 10 mg PO DAILY [facility] Last Admin: 12/20/19 09:15 Dose: 10 mg Documented by: Gabapentin (Neurontin) 300 mg PO TID [facility] Last Admin: 12/20/19 09:15 Dose: 300 mg Documented by: Hydromorphone HCl (Dilaudid) 2 mg PO Q4H PRN PRN Reason: PAIN Last Admin: 12/20/19 09:16 Dose: 2 mg Documented by: Ciprofloxacin/Dextrose 400 mg/ (Premix) 200 mls @ 200 mls/hr IV Q12H [facility] Last Admin: 12/20/19 04:13 Dose: 200 mls/hr Documented by: Metronidazole 500 mg/ Premix 100 mls @ 100 mls/hr IV Q8H [facility] Last Admin: 12/20/19 09:15 Dose: 100 mls/hr Documented by: Sodium Chloride (Normal Saline) 1,000 mls @ 50 mls/hr IV ASDIRECTED [facility] Last Admin: 12/19/19 10:41 Dose: 50 mls/hr Documented by: Magnesium Sulfate 2 gm/ Premix 50 mls @ 25 mls/hr IV ONETIME ONE Stop: 12/20/19 11:29 Last Admin: 12/20/19 09:47 Dose: Not Given Documented by: Lactobacillus Rhamnosus (Culturelle) 1 cap PO BID [facility] Last Admin: 12/20/19 09:15 Dose: 1 cap Documented by: Magnesium Oxide (Magnesium Oxide) 400 mg PO BID [facility] Last Admin: 12/20/19 09:47 Dose: Not Given Documented by: Melatonin (Melatonin) 3 mg PO BEDTIME [facility] Last Admin: 12/19/19 20:36 Dose: 3 mg Documented by: Metoprolol Succinate (Toprol Xl) 25 mg PO DAILY [facility] Last Admin: 12/20/19 09:36 Dose: Not Given Documented by: Montelukast Sodium (Singulair) 10 mg PO BEDTIME [facility] Last Admin: 12/19/19 20:37 Dose: 10 mg Documented by: Nystatin (Nystop) 0 gm TOP TID [facility] Last Admin: 12/20/19 09:17 Dose: 1 applic Documented by: Ondansetron HCl (Zofran) 4 mg IVPUSH Q4H PRN PRN Reason: Nausea Last Admin: 12/17/19 21:27 Dose: 4 mg Documented by: Pantoprazole Sodium (Protonix) 40 mg PO ACBREAKFAST [facility] Last Admin: 12/20/19 07:35 Dose: 40 mg Documented by: Entresto 24mg/26mg (Tab (Ptom)) 1 each PO BID [facility] Last Admin: 12/20/19 09:17 Dose: 1 each Documented by: Spironolactone (Aldactone) 25 mg PO DAILY [facility] Last Admin: 12/20/19 09:16 Dose: 25 mg Documented by: Valacyclovir HCl (Valtrex) 500 mg PO BID [facility] Last Admin: 12/20/19 09:15 Dose: 500 mg Documented by: Discontinued Medications Ciprofloxacin (Ciprofloxacin Hcl) 500 mg PO BID [facility] Last Admin: 12/18/19 15:56 Dose: Not Given Documented by: Fentanyl (Sublimaze) Confirm Administered Dose 100 mcg .ROUTE .STK-MED ONE Stop: 12/17/19 11:10 Hydromorphone HCl (Dilaudid) 1 mg IVPUSH ONETIME ONE Stop: 12/17/19 16:01 Last Admin: 12/17/19 15:56 Dose: 1 mg Documented by: Hydromorphone HCl (Dilaudid Pumping Plant Operator 15 Mg In Ns 30 Ml) 0 mg IV ASDIRECTED PRN; Protocol PRN Reason: [employer]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 Last Admin: 12/17/19 17:53 Dose: 15 mg Documented by: Dextrose/Lactated Ringer's (Dextrose 5%-Lactated Ringers) 1,000 mls @ 100 mls/hr IV ASDIRECTED [facility] Last Admin: 12/19/19 00:49 Dose: 100 mls/hr Documented by: Sodium Chloride (Normal Saline) 500 mls @ 250 mls/hr IV .BOLUS ONE Stop: 12/18/19 17:29 Last Admin: 12/18/19 16:00 Dose: 250 mls/hr Documented by: Metoprolol Succinate (Toprol Xl) 25 mg PO ONETIME ONE Stop: 12/17/19 18:01 Last Admin: 12/17/19 18:22 Dose: 25 mg Documented by: Metronidazole (Metronidazole) 500 mg PO Q6H [facility] Last Admin: 12/18/19 15:57 Dose: Not Given Documented by: Midazolam HCl (Versed 1 Mg/Ml) Confirm Administered Dose 2 mg .ROUTE .STK-MED ONE Stop: 12/17/19 11:10 Naloxone HCl (Narcan) 0.1 mg IV ASDIRECTED PRN PRN Reason: decreased respiratory rate Prednisone (Prednisone) 40 mg PO DAILY [facility] Last Admin: 12/19/19 08:29 Dose: 40 mg Documented by: Propofol (Diprivan 20 Ml) Confirm Administered Dose 200 mg .ROUTE .STK-MED ONE Stop: 12/17/19 11:10 Sulfasalazine (Sulfasalazine) 500 mg PO QID [facility] Last Admin: 12/19/19 10:34 Dose: Not Given Documented by: - Exam General: Reports: Alert, Oriented, Cooperative, No Acute Distress Lungs: Reports: Clear to Auscultation, Normal Respiratory Effort Cardiovascular: Reports: Regular Rate, Regular Rhythm, No Murmurs GI/Abdominal Exam: Soft, Non-Tender, No Organomegaly, No Distention Extremities: Non-Tender, No Pedal Edema
--- NOTE | 2019-12-20 16:52 | PN ---
DATE OF SERVICE: 12/20/2019 The patient has been afebrile with stable vital signs. Oral intake has been fairly good. We will switch her to oral pain medication today. Otherwise, continue management per Dr. Pereira. Brooks Fay MD /[id number]
--- NOTE | 2019-12-23 23:03 | HP ---
The patient underwent extensive upper and lower endoscopy with biopsies today. She was found among other things to have gastroesophageal reflux disease. More importantly, she had an area of fairly marked colitis on the colonoscopy in the cecum and ascending colon. Biopsies were obtained from that area. Post procedure, the patient developed quite a bit in the way of ongoing abdominal pain. A CT scan of the abdomen was obtained, which showed a large amount of air throughout the GI tract, but no evidence of free air. There was some thickening seen on the cecal area on the CT scan consistent with colitis. With the patient having quite a bit of pain at this point, the plan will be to admit. We will try to get her up and moving. We will go ahead with Dilaudid [employer] RO[employer] for pain control. Otherwise, we will begin a clear liquid diet and advance as tolerated. I suspect when she is passing gas, she will be able to be discharged home tomorrow. Brooks Fay MD /[id number]
--- NOTE | 2019-12-24 10:45 | OR ---
DATE OF PROCEDURE: 12/17/2019 SURGEON: Brooks Fay MD PREOPERATIVE DIAGNOSES: 1. History of dysphagia. 2. History of frequent loose bowel movements and/or diarrhea. POSTOPERATIVE DIAGNOSES: 1. Upper endoscopy showing: a. Small hiatal hernia with active gastroesophageal reflux disease involving edema but no stricturing of the esophagogastric junction. b. Patchy antral gastritis. c. Grossly normal duodenum. 2. Colonoscopy showing active hemorrhagic colitis in the cecum and ascending colon. OPERATIVE PROCEDURES: 1. Esophagogastroduodenoscopy with: a. Biopsies of the esophagogastric junction for histologic evaluation. b. Biopsies of the antrum for CLOtest. c. Biopsies of the duodenum to rule out celiac disease ([id number]). 2. Colonoscopy with: a. Collection of stool for culture and sensitivity ([id number]). b. Biopsies of the cecum and ascending colon ([id number]). ANESTHESIA: IV sedation. INDICATIONS FOR PROCEDURE: This is a 74-year-old presenting with a history of dysphagia referable to the distal esophagus, along with frequent loose bowel movements and/or diarrhea. The patient is presently on Protonix 40 mg daily. The plan is to proceed with upper and lower endoscopy with biopsies and/or dilation as indicated. The potential risks, including bleeding and perforation, were discussed, and the patient wishes to proceed. DETAILS OF THE PROCEDURE: The patient was taken to the operating room and placed in a left lateral decubitus position. IV sedation was administered, after which the upper GI endoscope was passed orally through the length of the esophagus into the stomach with retroflexion view of the fundus and thereafter through the pyloric channel and then into the junction of the 3rd and 4th portions of the duodenum. Upper endoscopy showed a small hiatal hernia with this being associated with active gastroesophageal reflux disease and quite a bit in the way of edema there. There was no stricturing, but this likely accounts for the patient's sense of dysphagia there. Within the stomach, there was no retained food or significant bile. There was some patchy redness in the antrum. The pyloric channel and the visualized portions of the duodenum were grossly normal. Biopsies were then obtained from the duodenum to rule out celiac disease. Biopsies were then obtained from the antrum and were sent for CLOtest for H pylori. Finally, biopsies were obtained from the esophagogastric junction and sent for histologic evaluation. Minimal bleeding from the biopsy sites was seen and the upper endoscope then removed. Attention was then taken to the colonoscopy. An initial digital rectal exam was performed and was unremarkable. A colonoscope was passed into the rectum with retroflexion revealing uncomplicated hemorrhoidal columns. The scope was eventually passed to the cecum. The prep was quite good with only a small amount of liquid stool present. Up until the ascending colon, no abnormalities were noted; however, in the ascending colon and cecum, there was some obvious colitis present. This was associated with some small streaks of blood. No obvious full blown ulcers were seen, and there was no fibrinous exudate present. To that level, some stool had been collected and sent for full microbiologic workup. Multiple biopsies were obtained from the cecum and ascending colon and sent for histologic evaluation. Minimal bleeding from the biopsy sites was seen and the scope then withdrawn and the above findings reconfirmed. The patient was taken to the recovery room, and there were no evident complications. The patient's reflux disease at this point may be, in fact, refractory to medical management. The plan will be to keep her on Protonix for now, and otherwise, we will await the C and S and colon biopsy results, as well as the biopsies of the duodenum, and the patient will be set up to see Nita Bird in followup. Brooks Fay MD /[id number]
--- NOTE | 2019-12-25 08:05 | PN ---
DATE OF SERVICE: 12/17/2019 The patient is status post an upper and lower endoscopy. This involved quite a bit of air insufflation. Both procedures involved quite a bit in the way of biopsies. In the managed care nurse unit postoperatively, the patient was noted to be complaining of severe abdominal pain, particularly on the right side of the abdomen, and passing much in the way of flatus. The CT scan was therefore obtained. It showed no evidence of any perforation, i.e. no free air or retroperitoneal air. The GI tract in general was entirely full of air and likely causing the patient's discomfort. In the cecum, one could see some obvious thickening of the wall consistent with the colitis that had been seen at the time of the endoscopy. Given the patient's degree of discomfort, the plan will be to admit her as an observation patient with pain control, and we will see how things are going in the morning. Brooks Fay MD /[id number]
== END 2019-12-20 10:45 | disposition home or self-care (01) | DRG 392 ==
LOC: JP.SDS 09:51 → JP.2SS 12:03 → UNDOADMOB 16:48 → JP.2SS 16:48 → INTOOBSV 12-18 08:24 → OBSVTOIN 12-18 08:24 → UNDODISIN 12-20 10:45
PROVIDERS: ADMIT Surgery; ATTEND Surgery
PROC: 0DB98ZX Excision of Duodenum, Via Natural or Artificial Opening Endoscopic, Diagnostic (ICD-10-PCS; principal; 2019-12-17)
PROC: 0DB48ZX Excision of Esophagogastric Junction, Via Natural or Artificial Opening Endoscopic, Diagnostic (ICD-10-PCS; 2019-12-17)
PROC: 0DBK8ZX Excision of Ascending Colon, Via Natural or Artificial Opening Endoscopic, Diagnostic (ICD-10-PCS; 2019-12-17)
PROC: 0DBH8ZX Excision of Cecum, Via Natural or Artificial Opening Endoscopic, Diagnostic (ICD-10-PCS; 2019-12-17)
DX: A09 Infectious gastroenteritis and colitis, unspecified (principal); I50.22 Chronic systolic (congestive) heart failure; I42.8 Other cardiomyopathies; I48.91 Unspecified atrial fibrillation; J44.9 Chronic obstructive pulmonary disease, unspecified; E78.2 Mixed hyperlipidemia; M47.812 Spondylosis without myelopathy or radiculopathy, cervical region; G47.33 Obstructive sleep apnea (adult) (pediatric); M16.11 Unilateral primary osteoarthritis, right hip; M25.512 Pain in left shoulder; K52.9 Noninfective gastroenteritis and colitis, unspecified; M85.80 Other specified disorders of bone density and structure, unspecified site; M79.10 Myalgia, unspecified site; I25.2 Old myocardial infarction; I11.0 Hypertensive heart disease with heart failure; Z79.82 Long term (current) use of aspirin; Z79.899 Other long term (current) drug therapy; Z88.8 Allergy status to other drugs, medicaments and biological substances; Z88.6 Allergy status to analgesic agent; Z91.040 Latex allergy status; H54.7 Unspecified visual loss; Z95.0 Presence of cardiac pacemaker; Z95.810 Presence of automatic (implantable) cardiac defibrillator; K44.9 Diaphragmatic hernia without obstruction or gangrene; M19.90 Unspecified osteoarthritis, unspecified site; G89.29 Other chronic pain; M54.9 Dorsalgia, unspecified; Z98.49 Cataract extraction status, unspecified eye; Z90.49 Acquired absence of other specified parts of digestive tract; Z98.890 Other specified postprocedural states
CPT/HCPCS: 36415; 43239; 45380; 74176 ×2; 80053; 83735; 84100; 85027; 87046; 87081; 87177; 87209; 87493; 87899 ×2; 88305; 89055; 94762; A9270 ×6; G0378 ×3; J1170 ×2; J2250; J2405; J2704; J3010; J7121 ×2; 80048; 85025; 87040; 97010; 97140-GP; 97161-GP; 99222-AI; 99232; J0744; J3490; J7030; J7040; J7512

== ENCOUNTER 2019-12-25 18:05 | Emergency (ER) | payer MEDICARE, BC ==
[2019-12-25 18:31] VITALS: BP 109/72; PULSE 110
[2019-12-25] MEDS ORDERED: Sodium Chloride 0.9% 10 ML Syringe FLUSH PRN (18:59)
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
[2019-12-25] MEDS ORDERED: Lactated Ringers 1,000 ML IV ONE (19:39)
[2019-12-25] MEDS ORDERED: Potassium Chloride 10 MEQ Cap.ER PO ONE (19:39)
== END 2019-12-25 22:15 | disposition home or self-care (01) ==
LOC: JP.ED 18:05
DX: R19.7 Diarrhea, unspecified (principal); I10 Essential (primary) hypertension; M19.90 Unspecified osteoarthritis, unspecified site; Z91.040 Latex allergy status; Z88.5 Allergy status to narcotic agent; Z88.8 Allergy status to other drugs, medicaments and biological substances; Z79.899 Other long term (current) drug therapy; Z79.82 Long term (current) use of aspirin; Z95.0 Presence of cardiac pacemaker
CPT/HCPCS: 36415; 80048; 83605; 83735; 85027; 96360; 99284; A9270; J7120

== ENCOUNTER 2020-02-04 19:28 | Observation (INO) | payer MEDICARE, BC ==
[2020-02-04] MEDS ORDERED: Sodium Chloride 0.9% 10 ML Syringe FLUSH PRN (19:31)
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
--- NOTE | 2020-02-04 20:37 | CRLCT ---
INDICATION: confusion TECHNIQUE: CT Head without i.v. contrast. COMPARISON: 07/03/2018 FINDINGS: CSF space: Unremarkable for age. Brain: No evidence of mass, acute infarction or hemorrhage is seen. No mass-effect or midline shift is seen. Mild diffuse cortical atrophy is noted. The brain parenchyma is otherwise normal in appearance with preservation of the dunn-white matter junction. Calvarium: The visualized paranasal sinuses are well aerated. The mastoid air cells are clear. The visualized orbits are grossly unremarkable. The calvarium is unremarkable in appearance with no fractures identified. IMPRESSION: 1. No evidence of acute infarction, intracranial hemorrhage, or mass-effect seen. The findings were discussed with Dr. Cole at 8:36 PM. Please note that all CT scans at this facility use dose modulation, iterative reconstruction, and/or weight-based dosing when appropriate to reduce radiation dose to as low as reasonably achievable. Dictated by: Jeremi Oropeza MD @ 02/04/2020 20:36:18 (Electronically Signed)
[2020-02-04] MEDS ORDERED: Iopamidol 755 Mg/ML 100 ML Bottle IV SCH (21:00)
[2020-02-04] MEDS ORDERED: Sodium Chloride 0.9% 100 ML IV SCH (21:00)
[2020-02-04] MEDS ORDERED: Sodium Chloride 0.9% 1,000 ML IV SCH (21:00)
[2020-02-04] MEDS ORDERED: Ondansetron 4 MG/2 ML SDV IVPUSH ONE (21:17)
--- NOTE | 2020-02-04 22:26 | CRLCT ---
DATE: 02/04/2020. CLINICAL HISTORY: Patient with confusion and subacute stroke. TECHNIQUE: Standard helical CT image acquisition through the head and neck was performed after intravenous contrast bolus enhancement. Multiplanar reconstructed images were performed and interpreted. COMPARISON: None available. FINDINGS: The origins of the great vessels from the aortic arch are patent. The origin of the right vertebral artery is patent. The origin of the left vertebral artery is patent. The common carotid arteries are patent. Predominantly noncalcified atherosclerotic plaque involving the right carotid bifurcation and carotid bulb and results and moderate luminal stenosis of the proximal internal carotid artery (approximately 60 percent stenosis by NASCET criteria). There is no stenosis at the origin of the left internal carotid artery. The rest of the cervical segments of the internal carotid arteries are patent up to their intracranial segments. The intracranial segments of the internal carotid arteries are patent. The vertebral arteries are diminutive in caliber. The cervical segments of the vertebral arteries are patent. The intracranial segments of the vertebral arteries are patent. The anterior and middle cerebral arteries are patent. The anterior communicating artery is visualized. In the vertebrobasilar system is small in caliber due to the presence of a origin of the right posterior cerebral artery and near origin of the left posterior cerebral artery, both of which are widely patent. There is normal opacification of major intracranial venous structures. Partial visualization of ground-glass opacities in the anterior periphery of the left upper lobe, nonspecific. The thyroid gland is unremarkable. There are degenerative changes in the cervical spine. Postsurgical changes are seen involving the spinous processes of C6 and C7. IMPRESSION: 1. No intracranial proximal large vessel occlusion or hemodynamically significant luminal stenosis. 2. Predominantly noncalcified atherosclerotic plaque involving the right carotid bulb and resulting in moderate stenosis of the proximal internal carotid artery (approximately 60 percent stenosis by NASCET criteria). 3. Partial visualization of ground-glass opacities in the anterior periphery of the left upper lobe. This is nonspecific but may reflect underlying infectious/inflammatory etiologies. Chest CT is recommended for further assessment. Please note that all CT scans at this facility use dose modulation, iterative reconstruction, and/or weight-based dosing when appropriate to reduce radiation dose to as low as reasonably achievable. Dictated by Maxwell Pappas MD @ Feb 05 2020 8:53AM Signed by Dr. Maxwell Pappas @ Feb 05 2020 9:25AM
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
[2020-02-05] MEDS ORDERED: Ondansetron 4 MG/2 ML SDV IV PRN (00:34)
[2020-02-05] MEDS ORDERED: Magnesium Hydroxide 400 MG/5 ML Susp 30 ML Cup PO PRN (00:34)
[2020-02-05] MEDS ORDERED: Ondansetron 4 MG Tab.DIS PO PRN (00:34)
[2020-02-05] MEDS ORDERED: LORazepam 2 MG/ML SDV IVPUSH PRN (00:34)
[2020-02-05] MEDS ORDERED: Enoxaparin 40 MG/0.4 ML Syringe SUBCUT ONE ×2 (00:34→18:00)
[2020-02-05] MEDS ORDERED: Melatonin 3 MG Tab PO PRN (00:34)
[2020-02-05] MEDS: Sodium Chloride 0.9% 1,000 ML IV SCH ×2 (00:50→11:41)
[2020-02-05] MEDS: Acetaminophen 325 MG Tab PO PRN ×2 (07:37→21:02)
[2020-02-05] MEDS: Pantoprazole 40 MG Tab.CR **PTOM PO SCH (07:37)
--- NOTE | 2020-02-05 09:23 | CR ---
CHEST: Portable 02/04/2020 at 11:43 PM CLINICAL HISTORY:Cough COMPARISON:2019 FINDINGS: Heart size and pulmonary vascularity are normal. Patient has a permanent cardiac pacer/defibrillator. Lung ponce are clear. Impression: No acute cardiopulmonary process.
--- NOTE | 2020-02-05 12:13 | PCM.PN ---
- General Info Date of Service: 02/05/20 Subjective Update: There were no acute events overnight. Speech is back to normal. Patient has a very mild frontal headache but otherwise feels okay. No fever this morning. No cough or shortness of breath. Appetite is good. No abdominal pain or diarrhea. COVID-19 testing did return positive last night and patient has been in precautions. Functional Status: Reports: Pain Controlled, Tolerating Diet - Review of Systems General: Denies: Fever Neurological: Denies: Trouble Speaking Psychiatric: Denies: Confusion - Patient Data Vitals - Most Recent: Last Vital Signs Temp 35.9 C L 02/05/20 11:20 Pulse 75 02/05/20 11:20 Resp 16 02/05/20 11:20 BP 103/52 L 02/05/20 11:20 Pulse Ox 96 02/05/20 11:20 Orthostatic Blood Pressure [ 66/48 Standing] Orthostatic Blood Pressure [ 100/70 Sitting] Orthostatic Blood Pressure [ 87/60 Supine] Weight - Most Recent: 58.513 kg I&O - Last 24 Hours: Intake & Output 02/04/20 02/05/20 02/05/20 22:59 06:59 14:59 Intake Total 360 Output Total 400 300 Balance -400 60 Lab Results Last 24 Hours: Laboratory Results - last 24 hr 02/04/20 02/04/20 02/04/20 Range/Units 19:44 19:44 21:51 WBC 6.9 (4.5-11.0) K/uL RBC 4.76 (3.30-5.50) M/uL Hgb 13.5 (12.0-15.0) g/dL Hct 42.7 (36.0-48.0) % MCV 90 (80-98) fL MCH 28 (27-31) pg MCHC 32 (32-36) % Plt Count 176 (150-400) K/uL D-Dimer, Quantitative (0.0-400.0) ng/mL Sodium 138 L (140-148) mmol/L Potassium 4.1 (3.6-5.2) mmol/L Chloride 104 (100-108) mmol/L Carbon Dioxide 21 (21-32) mmol/L Anion Gap 17.1 H (5.0-14.0) mmol/L BUN 23 H D (7-18) mg/dL Creatinine 0.9 (0.6-1.0) mg/dL Est Cr Clr Drug Dosing 39.99 mL/min Estimated GFR (MDRD) > 60 (>60) Glucose 101 (74-106) mg/dL Calcium 9.6 (8.5-10.1) mg/dL Troponin I < 0.017 (0.000-0.056) ng/mL C-Reactive Protein (0.0-0.3) mg/dL Procalcitonin ng/mL Urine Color Yellow (YELLOW) Urine Appearance Clear (CLEAR) Urine pH 6.0 (5.0-8.0) Ur Specific [place] 1.010 (1.008-1.030) Urine Protein Negative (NEGATIVE) mg/dL Urine Glucose (UA) Negative (NEGATIVE) mg/dL Urine Ketones Negative (NEGATIVE) mg/dL Urine Occult Blood Negative (NEGATIVE) Urine Nitrite Negative (NEGATIVE) Urine Bilirubin Negative (NEGATIVE) Urine Urobilinogen 0.2 (0.2-1.0) EU/dL Ur Leukocyte Esterase Negative (NEGATIVE) Urine RBC 0-5 (0-5) Urine WBC 0-5 (0-5) Ur Epithelial Cells Rare Amorphous Sediment Rare Urine Bacteria Not seen Urine Mucus Not seen SARS-CoV-2 RNA (GUILLE) (NEGATIVE) 02/04/20 02/04/20 02/04/20 Range/Units 23:27 23:27 23:27 WBC (4.5-11.0) K/uL RBC (3.30-5.50) M/uL Hgb (12.0-15.0) g/dL Hct (36.0-48.0) % MCV (80-98) fL MCH (27-31) pg MCHC (32-36) % Plt Count (150-400) K/uL D-Dimer, Quantitative 1250 H (0.0-400.0) ng/mL Sodium (140-148) mmol/L Potassium (3.6-5.2) mmol/L Chloride (100-108) mmol/L Carbon Dioxide (21-32) mmol/L Anion Gap (5.0-14.0) mmol/L BUN (7-18) mg/dL Creatinine (0.6-1.0) mg/dL Est Cr Clr Drug Dosing mL/min Estimated GFR (MDRD) (>60) Glucose (74-106) mg/dL Calcium (8.5-10.1) mg/dL Troponin I (0.000-0.056) ng/mL C-Reactive Protein 1.54 H (0.0-0.3) mg/dL Procalcitonin < 0.05 ng/mL Urine Color (YELLOW) Urine Appearance (CLEAR) Urine pH (5.0-8.0) Ur Specific [place] (1.008-1.030) Urine Protein (NEGATIVE) mg/dL Urine Glucose (UA) (NEGATIVE) mg/dL Urine Ketones (NEGATIVE) mg/dL Urine Occult Blood (NEGATIVE) Urine Nitrite (NEGATIVE) Urine Bilirubin (NEGATIVE) Urine Urobilinogen (0.2-1.0) EU/dL Ur Leukocyte Esterase (NEGATIVE) Urine RBC (0-5) Urine WBC (0-5) Ur Epithelial Cells Amorphous Sediment Urine Bacteria Urine Mucus SARS-CoV-2 RNA (GUILLE) (NEGATIVE) 02/04/20 02/05/20 02/05/20 Range/Units 23:30 04:05 04:05 WBC 5.9 (4.5-11.0) K/uL RBC 4.06 (3.30-5.50) M/uL Hgb 12.2 (12.0-15.0) g/dL Hct 35.9 L (36.0-48.0) % MCV 88 (80-98) fL MCH 30 (27-31) pg MCHC 34 (32-36) % Plt Count (150-400) K/uL D-Dimer, Quantitative (0.0-400.0) ng/mL Sodium 134 L (140-148) mmol/L Potassium 5.9 H (3.6-5.2) mmol/L Chloride 108 (100-108) mmol/L Carbon Dioxide 16 L (21-32) mmol/L Anion Gap 15.9 H (5.0-14.0) mmol/L BUN 13 (7-18) mg/dL Creatinine 0.5 L (0.6-1.0) mg/dL Est Cr Clr Drug Dosing 71.98 mL/min Estimated GFR (MDRD) > 60 (>60) Glucose 72 L (74-106) mg/dL Calcium 6.5 L* D (8.5-10.1) mg/dL Troponin I (0.000-0.056) ng/mL C-Reactive Protein (0.0-0.3) mg/dL Procalcitonin ng/mL Urine Color (YELLOW) Urine Appearance (CLEAR) Urine pH (5.0-8.0) Ur Specific [place] (1.008-1.030) Urine Protein (NEGATIVE) mg/dL Urine Glucose (UA) (NEGATIVE) mg/dL Urine Ketones (NEGATIVE) mg/dL Urine Occult Blood (NEGATIVE) Urine Nitrite (NEGATIVE) Urine Bilirubin (NEGATIVE) Urine Urobilinogen (0.2-1.0) EU/dL Ur Leukocyte Esterase (NEGATIVE) Urine RBC (0-5) Urine WBC (0-5) Ur Epithelial Cells Amorphous Sediment Urine Bacteria Urine Mucus SARS-CoV-2 RNA (GUILLE) Positive H (NEGATIVE) Med Orders - Current: Current Medications Acetaminophen (Tylenol) 650 mg PO Q4H PRN PRN Reason: Pain (Mild 1-3)/fever Last Admin: 02/05/20 07:37 Dose: 650 mg Documented by: Aspirin (Aspirin) 81 mg PO DAILY [facility] Gabapentin (Neurontin) 300 mg PO TID [facility] Sodium Chloride (Normal Saline) 1,000 mls @ 100 mls/hr IV ASDIRECTED [facility] Last Admin: 02/05/20 11:41 Dose: 100 mls/hr Documented by: Lorazepam (Ativan) 0.5 mg IVPUSH Q4H PRN PRN Reason: Nausea/Vomiting Magnesium Hydroxide (Milk Of Magnesia) 30 ml PO Q12H PRN PRN Reason: Constipation Melatonin (Melatonin) 9 mg PO BEDTIME PRN PRN Reason: Sleep Metoprolol Succinate (Toprol Xl) 25 mg PO DAILY [facility] Ondansetron HCl (Zofran) 4 mg IV Q6H PRN PRN Reason: Nausea/Vomiting Ondansetron HCl (Zofran Odt) 4 mg PO Q6H PRN PRN Reason: Nausea able to take PO Pantoprazole Sodium (Protonix) 40 mg PO DAILY@0730 [facility] Last Admin: 02/05/20 07:37 Dose: 40 mg Documented by: Rosuvastatin Calcium (Crestor) 10 mg PO DAILY [facility] Senna/Docusate Sodium (Senna Plus) 1 tab PO BID PRN PRN Reason: Constipation Sodium Chloride (Saline Flush) 10 ml FLUSH ASDIRECTED PRN PRN Reason: Keep Vein Open Last Admin: 02/04/20 21:16 Dose: 10 ml Documented by: Discontinued Medications Enoxaparin Sodium (Lovenox) 40 mg SUBCUT ONETIME ONE Stop: 02/05/20 00:35 Last Admin: 02/05/20 00:50 Dose: 40 mg Documented by: Sodium Chloride (Normal Saline) 1,000 mls @ 150 mls/hr IV ASDIRECTED [facility] Last Admin: 02/04/20 21:18 Dose: 150 mls/hr Documented by: Sodium Chloride (Normal Saline) 100 mls @ 3 mls/sec IV ASDIRECTED [facility] Last Admin: 02/04/20 21:16 Dose: 3 mls/sec Documented by: Iopamidol (Isovue-370 (76%)) 100 ml IV . DIRECTED [facility] Last Admin: 02/04/20 21:16 Dose: 100 ml Documented by: Ondansetron HCl (Zofran) 4 mg IVPUSH ONETIME ONE Stop: 02/04/20 21:18 Last Admin: 02/04/20 21:21 Dose: 4 mg Documented by: - Exam Quality Assessment: No: Supplemental Oxygen General: Alert, Oriented, Cooperative, No Acute Distress Lungs: Normal Respiratory Effort. No: Wheezing GI/Abdominal Exam: Soft, No Distention Extremities: No Pedal Edema. No: Increased Warmth Skin: Warm, Dry Neurological: No New Focal Deficit, Normal Speech Psy/Mental Status: Alert, Normal Affect Sepsis Event Note - Evaluation Sepsis Screening Result: No Definite Risk - Focused Exam Vital Signs: Vital Signs Temp Pulse Resp BP Pulse Ox 02/05/20 11:20 35.9 C L 75 16 103/52 L 96 02/05/20 07:27 37.1 C 80 16 110/60 95 02/05/20 02:57 37.6 C 02/05/20 00:37 37.4 C 78 18 114/54 L 95 - Problem List & Annotations (1) Expressive aphasia SNOMED Code(s): 485752430, 698548494 Code(s): R47.01 - APHASIA Status: Acute Current Visit: Yes (2) Paroxysmal atrial fibrillation SNOMED Code(s): 498075757 Code(s): I48.0 - PAROXYSMAL ATRIAL FIBRILLATION Status: Chronic Current Visit: Yes (3) Cardiomyopathy SNOMED Code(s): 25406842 Code(s): I42.9 - CARDIOMYOPATHY, UNSPECIFIED Status: Chronic Current Visit: Yes Qualifiers: Cardiomyopathy type: unspecified Qualified Code(s): I42.9 - Cardiomyopathy, unspecified - Problem List Review Problem List Initiated/Reviewed/Updated: Yes - My Orders Last 24 Hours: My Active Orders 02/04/20 23:33 Resuscitation Status Routine 02/05/20 00:34 Acetaminophen [TylenoL] 650 mg PO Q4H PRN Docusate Sodium/Sennosides [Senna Plus] 1 tab PO BID PRN LORazepam [Ativan] 0.5 mg IVPUSH Q4H PRN Magnesium Hydroxide [Milk of Magnesia] 30 ml PO Q12H PRN Melatonin 9 mg PO BEDTIME PRN Ondansetron [Zofran ODT] 4 mg PO Q6H PRN Ondansetron [Zofran] 4 mg IV Q6H PRN Sodium Chloride 0.9% [Normal Saline] 1,000 ml IV ASDIRECTED 02/05/20 00:34 Patient Status [ADT] Routine Antiembolic Devices [RC] .Routine Intake and Output [RC] QSHIFT Notify Provider Vital Signs [RC] ASDIRECTED Oxygen Therapy [RC] PRN VTE/DVT Education [RC] Per Unit Routine Vital Signs [RC] Q4H Sequential Compression Device [OM.PC] Routine 02/05/20 07:30 Pantoprazole [ProTONIX] 40 mg PO DAILY@0730 02/05/20 Breakfast Regular Diet [DIET] 02/05/20 09:00 Aspirin 81 mg PO DAILY Gabapentin [Neurontin] 300 mg PO TID Metoprolol Succinate [Toprol XL] 25 mg PO DAILY Rosuvastatin [Crestor] 10 mg PO DAILY - Plan Plan:: ASSESSMENT AND PLAN - COVID-19 infection-minimal symptoms at this time with only some phlegm/congestion. She did have low-grade fevers. Essentially asymptomatic at this time. D-dimer was elevated along with CRP. The expressive aphasia could be related to the infection or possibly a very small thrombus related to the infection. She is not currently needing supplemental oxygen. -Enoxaparin 40 mg daily -Hold off on any additional treatment such as dexamethasone with minimal symptoms Expressive aphasia-concern for stroke but so far imaging has been unremarkable. 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 Now that we have found the positive COVID-19 test I wonder if this is related to her infection or possibly hypovolemia. She is back to normal today and has no deficits. -Continue aspirin Cardiomyopathy-well compensated at this time. Paroxysmal atrial fibrillation-currently in a paced rhythm. Maintenance issues - - DVT prophylaxis -enoxaparin - GI prophylaxis -Home PPI - Nutrition -regular Admission justification -patient will be referred observation status for expedited work-up and additional monitoring Disposition -I would anticipate discharge home after the hospital stay, likely tomorrow if stable overnight Primary care physician - Isadora Miles M.D.
[2020-02-05] MEDS: Rosuvastatin 10 MG **PTOM PO SCH ×2 (12:23→13:43)
[2020-02-05] MEDS: Aspirin 81 MG Tab.Chew PO SCH (12:23)
[2020-02-05] MEDS: Metoprolol Succinate 25 MG Tab.ER **PTOM PO SCH ×2 (12:24→13:42)
[2020-02-05] MEDS: Gabapentin 300 MG **PTOM PO SCH ×4 (12:24→20:36)
[2020-02-06] MEDS: Rosuvastatin 10 MG **PTOM PO SCH (08:53)
[2020-02-06] MEDS: Gabapentin 300 MG **PTOM PO SCH (08:54)
[2020-02-06] MEDS: Pantoprazole 40 MG Tab.CR **PTOM PO SCH (08:54)
[2020-02-06] MEDS: Metoprolol Succinate 25 MG Tab.ER **PTOM PO SCH (08:54)
[2020-02-06] MEDS: Aspirin 81 MG Tab.Chew PO SCH (08:55)
[2020-02-06 10:50] VITALS: BP 93/43; PULSE 69
--- NOTE | 2020-02-06 13:44 | PCM.DCSUM1 ---
Discharge Summary - Hospital Course Brief History: 74-year-old female with history of cardiomyopathy, paroxysmal atrial fibrillation who presented with weakness and confusion. Initially there was concern for stroke and the patient was admitted for further work-up with this concern but she was also noted to be positive for COVID-19 virus. Diagnosis: Stroke: No - Discharge Data Discharge Date: 02/06/20 Discharge Disposition: Home, Self-Care 01 Condition: Good - Referral to Home Health Primary Care Physician: Tequila Bird CNM - Discharge Diagnosis/Problem(s) (1) COVID-19 virus detected SNOMED Code(s): 4492569718043232 ICD Code: U07.1 - COVID-19 Status: Acute (2) Expressive aphasia SNOMED Code(s): 549426494, 198734032 ICD Code: R47.01 - APHASIA Status: Acute (3) Paroxysmal atrial fibrillation SNOMED Code(s): 533881950 ICD Code: I48.0 - PAROXYSMAL ATRIAL FIBRILLATION Status: Chronic (4) Cardiomyopathy SNOMED Code(s): 33696440 ICD Code: I42.9 - CARDIOMYOPATHY, UNSPECIFIED Status: Chronic Qualifiers: Cardiomyopathy type: unspecified Qualified Code(s): I42.9 - Cardiomyopathy, unspecified - Patient Summary/Data Hospital Course: Katelynn presented to the emergency room with weakness, confusion and an apparent expressive aphasia. Initially there was concern for a stroke and she did receive a head CT which was unremarkable. Neurology was consulted and they recommended a CT angiogram. This too was also unremarkable other than 60 to 65% stenosis of the left carotid artery. The patient seemed to be improving while she was in the emergency room. The plan was for admission for observation and additional work-up for presumed stroke. She was noted to be febrile in the emergency room with a low-grade temperature elevation at 37.9. This prompted COVID-19 testing which returned positive. The patient was admitted to the hospital under isolation precautions. During the course of the hospital stay over there were no significant issues. We did have her on enoxaparin in case this strokelike symptom was the result of a hypercoagulable state with the Covid infection. She has not had any additional symptoms other than the presenting difficulties. She felt well throughout the course of her hospital stay. She does not have any neurologic deficits or speech difficulties. She has not had any more fevers. No cough or shortness of breath. She has not been hypoxic. I suspect that the confusion at the time of presentation was probably related to the infection and possibly some dehydration and intravascular volume depletion. We have not found any evidence for bacterial infection. All of her speech difficulties have resolved and imaging was unremarkable. Plan is for the patient to go home at this time. She will be on enoxaparin for 1 week. She was encouraged to quarantine at home until 10 days after her positive test which was last week. She will follow up if symptoms worsen. - Patient Instructions Diet: Regular Diet as Tolerated Activity: As Tolerated Showering/Bathing: May Shower Notify Provider of: Fever, Increased Pain Other/Special Instructions: 1. You were in the hospital for evaluation of an expressive aphasia. Initially we were concerned that you are having a stroke but we did not find any definitive evidence for a stroke. We did find that your COVID-19 test was positive. I suspect that the difficulty that you are having was related to this infection. You have returned to normal without any specific intervention. At this time you seem to be doing well with the viral infection and no specific treatment is necessary with the exception of enoxaparin. The viral infection causes a significant inflammatory response in your body and also activates your clotting system. The enoxaparin helps reduce the risk of forming blood clots which can turn into bigger problems such as a stroke. I would recommend that you go home and remain at home on quarantine for a total of 10 days from your positive test. This means you should stay home and not have any visitors until next Monday. 2. Continue your usual home medications as previously prescribed. 3. Seek medical attention if you develop significant shortness of breath, profound weakness or persistent vomiting or diarrhea that leads to dehydration. You may use acetaminophen safely if you do develop some m ild fevers with your viral infection. - Discharge Plan *PRESCRIPTION DRUG MONITORING PROGRAM REVIEWED*: Not Applicable *COPY OF PRESCRIPTION DRUG MONITORING REPORT IN PATIENT JACINTA: Not Applicable Prescriptions/Med Rec: Enoxaparin [Lovenox] 40 mg SUBCUT Q24H #7 syringe Home Medications: Home Meds Cholecalciferol (Vitamin D3) [Vitamin D] 5,000 unit PO DAILY 11/04/13 [History] Multivit with Calcium,Iron,Min [Essential Daily] 1 tab PO DAILY 11/04/13 [History] Rosuvastatin [Crestor] 10 mg PO DAILY 11/04/13 [History] [place]-3/DHA/Epa/Fish Oil [Fish Oil Dr 500 mg Softgel] 1,000 mg PO DAILY 01/19/15 [History] Fluticasone Propionate [Flonase Allergy Relief] 2 spray CHARBEL DAILY 06/06/17 [History] Gabapentin [Neurontin] 300 mg PO TID 06/06/17 [History] Albuterol [Ventolin HFA] 2 puff INH Q4H PRN 07/31/17 [History] valACYclovir [Valtrex] 500 mg PO BID 10/16/17 [History] Cetirizine [ZyrTEC] 10 mg PO DAILY 06/28/18 [History] Aspirin [Pamela Chewable Aspirin] 81 mg PO DAILY 11/21/19 [History] Benzonatate [Tessalon Perle] 100 mg PO TID 12/13/19 [History] Metoprolol Succinate [Toprol Xl] 25 mg PO DAILY 12/13/19 [History] Montelukast [Singulair] 10 mg PO DAILY 12/13/19 [History] Pantoprazole Sodium [Protonix] 40 mg PO BID 12/13/19 [History] Spironolactone [Aldactone] 25 mg PO DAILY 12/13/19 [History] Melatonin 2.5 mg PO BEDTIME 12/17/19 [History] Alendronate [Fosamax] 1 tab PO WEEKLY 02/04/20 [History] Fluconazole [Diflucan] 100 mg PO DAILY 02/04/20 [History] Nystatin [Nystop] 60 gm TP BID 02/04/20 [History] Pramoxine HCl [Cerave Itch Relief] 340 gm TP QID PRN 02/04/20 [History] Sacubitril/Valsartan [Entresto 24 mg-26 mg Tablet] 1 tab PO BID 02/04/20 [History] Sucralfate [Carafate] 1 gm PO QID 02/04/20 [History] Enoxaparin [Lovenox] 40 mg SUBCUT Q24H #7 syringe 02/06/20 [Rx] Oxygen Therapy Mode: Room Air Patient Handouts: COVID-19 Frequently Asked Questions, Prevent the Spread of COVID-19 if You Are Sick - [facility] Referrals: Tequila Bird CNM [Primary Care Provider] - 02/18/20 1:30 pm (Please arrive 15 minutes early to register for your apoointment.) - Discharge Summary/Plan Comment DC Time >30 min.: Yes (35-Covid19 counseling) - Patient Data Vitals - Most Recent: Last Vital Signs Temp 36.9 C 02/06/20 10:46 Pulse 69 02/06/20 10:46 Resp 18 02/06/20 10:46 BP 93/43 L 02/06/20 10:46 Pulse Ox 94 L 02/06/20 10:46 Orthostatic Blood Pressure [ 66/48 Standing] Orthostatic Blood Pressure [ 100/70 Sitting] Orthostatic Blood Pressure [ 87/60 Supine] Weight - Most Recent: 58.513 kg I&O - Last 24 hours: Intake & Output 02/05/20 02/06/20 02/06/20 22:59 06:59 14:59 Intake Total 480 980 Balance 480 980 Med Orders - Current: Current Medications Acetaminophen (Tylenol) 650 mg PO Q4H PRN PRN Reason: Pain (Mild 1-3)/fever Last Admin: 02/05/20 21:02 Dose: 650 mg Documented by: Aspirin (Aspirin) 81 mg PO DAILY [facility] Last Admin: 02/06/20 08:55 Dose: Not Given Documented by: Enoxaparin Sodium (Lovenox) 40 mg SUBCUT Q24H [facility] Last Admin: 02/06/20 13:26 Dose: 40 mg Documented by: Gabapentin (Neurontin) 300 mg PO TID [facility] Last Admin: 02/06/20 08:54 Dose: 300 mg Documented by: Lorazepam (Ativan) 0.5 mg IVPUSH Q4H PRN PRN Reason: Nausea/Vomiting Magnesium Hydroxide (Milk Of Magnesia) 30 ml PO Q12H PRN PRN Reason: Constipation Melatonin (Melatonin) 9 mg PO BEDTIME PRN PRN Reason: Sleep Metoprolol Succinate (Toprol Xl) 25 mg PO DAILY [facility] Last Admin: 02/06/20 08:54 Dose: 25 mg Documented by: Ondansetron HCl (Zofran Odt) 4 mg PO Q6H PRN PRN Reason: Nausea able to take PO Pantoprazole Sodium (Protonix) 40 mg PO DAILY@0730 [facility] Last Admin: 02/06/20 08:54 Dose: 40 mg Documented by: Rosuvastatin Calcium (Crestor) 10 mg PO DAILY [facility] Last Admin: 02/06/20 08:53 Dose: 10 mg Documented by: Senna/Docusate Sodium (Senna Plus) 1 tab PO BID PRN PRN Reason: Constipation Sodium Chloride (Saline Flush) 10 ml FLUSH ASDIRECTED PRN PRN Reason: Keep Vein Open Last Admin: 02/04/20 21:16 Dose: 10 ml Documented by: Discontinued Medications Enoxaparin Sodium (Lovenox) 40 mg SUBCUT ONETIME ONE Stop: 02/05/20 00:35 Last Admin: 02/05/20 00:50 Dose: 40 mg Documented by: Enoxaparin Sodium (Lovenox) 40 mg SUBCUT ONETIME ONE Stop: 02/05/20 18:01 Last Admin: 02/05/20 17:35 Dose: 40 mg Documented by: Sodium Chloride (Normal Saline) 1,000 mls @ 150 mls/hr IV ASDIRECTED [facility] Last Admin: 02/04/20 21:18 Dose: 150 mls/hr Documented by: Sodium Chloride (Normal Saline) 100 mls @ 3 mls/sec IV ASDIRECTED [facility] Last Admin: 02/04/20 21:16 Dose: 3 mls/sec Documented by: Sodium Chloride (Normal Saline) 1,000 mls @ 100 mls/hr IV ASDIRECTED [facility] Last Admin: 02/05/20 11:41 Dose: 100 mls/hr Documented by: Iopamidol (Isovue-370 (76%)) 100 ml IV . DIRECTED [facility] Last Admin: 02/04/20 21:16 Dose: 100 ml Documented by: Ondansetron HCl (Zofran) 4 mg IVPUSH ONETIME ONE Stop: 02/04/20 21:18 Last Admin: 02/04/20 21:21 Dose: 4 mg Documented by: Ondansetron HCl (Zofran) 4 mg IV Q6H PRN PRN Reason: Nausea/Vomiting
[2020-02-06] MEDS ORDERED: Enoxaparin 40 MG/0.4 ML Syringe SUBCUT SCH (14:00)
== END 2020-02-06 14:45 | disposition home or self-care (01) ==
LOC: JP.ED 19:28 → JP.MS 23:30 → JP.2SS 02-05 00:17
PROVIDERS: ADMIT Internal Medicine; ATTEND Internal Medicine
DX: R47.01 Aphasia (principal); U07.1 COVID-19; G47.30 Sleep apnea, unspecified; I10 Essential (primary) hypertension; I48.0 Paroxysmal atrial fibrillation; I42.9 Cardiomyopathy, unspecified; Z91.040 Latex allergy status; Z88.8 Allergy status to other drugs, medicaments and biological substances; Z79.899 Other long term (current) drug therapy; Z79.82 Long term (current) use of aspirin; Z95.0 Presence of cardiac pacemaker
CPT/HCPCS: 36415; 70450; 70496; 70498; 71045; 80048; 81001; 84145; 84484; 85027; 85379; 86140; 93005; 93010; 96361; 96372; 96374; 99217; 99219; 99225; 99285; A9270; G0378; J1650; J2405; J7030; Q9967; U0002

== ENCOUNTER 2021-03-01 10:21 | Emergency (ER) | payer MEDICARE, BC ==
[2021-03-01] MEDS ORDERED: Sodium Chloride 0.9% 10 ML Syringe FLUSH PRN (10:53)
[2021-03-01 10:56] VITALS: BP 127/72; PULSE 78
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
== END 2021-03-01 13:16 | disposition home or self-care (01) ==
LOC: JP.ED 10:21
DX: R19.7 Diarrhea, unspecified (principal); I10 Essential (primary) hypertension; Z91.040 Latex allergy status; Z88.5 Allergy status to narcotic agent; Z88.8 Allergy status to other drugs, medicaments and biological substances; Z79.899 Other long term (current) drug therapy
CPT/HCPCS: 36415; 80048; 99284

== ENCOUNTER 2024-07-31 16:50 | Emergency (ER) | payer BC, MEDICARE ==
[2024-07-31] MEDS: Sodium Chloride 0.9% 1,000 ML IV ONE (17:51)
[2024-07-31 17:53] LABS: BASOPHILS ABSOLUTE AUTO 0.09 K/uL (0.00-0.10); BASOPHILS PERCENT AUTO 0.6 % (0.1-1.3); EOSINOPHILS ABSOLUTE AUTO 0.29 K/uL (0.00-0.40); HEMATOCRIT 36.1 % (34.3-46.0); HEMOGLOBIN 11.8 g/dL (11.2-15.5); IMMATURE GRAN ABSOLUTE AUTO 0.05 K/uL (0.00-0.23); IMMATURE GRAN PERCENT AUTO 0.4 % (0.0-0.7); LYMPHOCYTES ABSOLUTE AUTO 4.09 K/uL (0.8-3.3); LYMPHOCYTES PERCENT AUTO 28.6 % (11.4-47.7); MEAN CORPUSCULAR HEMOGLOBIN 31.1 pg (31.6-35.5); MEAN CORPUSCULAR HGB CONC 32.7 g/dL (31.6-35.5); MONOCYTES PERCENT AUTO 10.5 % (3.3-12.6); NEUTROPHILS ABSOLUTE AUTO 8.26 K/uL (1.0-7.6); NEUTROPHILS PERCENT AUTO 57.9 % (40.0-78.1); PLATELET COUNT,PLT 329 K/uL (130-375); WHITE BLOOD CELL COUNT,WBC 14.3 K/uL (3.2-11.0)
[2024-07-31 18:15] LABS: ANION GAP 9.8 mmol/L (5.0-14.0); CALCIUM 9.4 mg/dL (8.5-10.1); CREATININE 1.3 mg/dL (0.6-1.0); EST CRCL DRUG DOSING (CG) 25.62 mL/min; POTASSIUM,K 4.4 mmol/L (3.6-5.2)
[2024-07-31 20:38] VITALS: BP 114/67; PULSE 64
== END 2024-07-31 20:58 | disposition home or self-care (01) ==
LOC: JP.ED 16:50
DX: I95.1 Orthostatic hypotension (principal); Z95.810 Presence of automatic (implantable) cardiac defibrillator; Z79.899 Other long term (current) drug therapy; Z88.6 Allergy status to analgesic agent; Z88.8 Allergy status to other drugs, medicaments and biological substances; Z90.49 Acquired absence of other specified parts of digestive tract
CPT/HCPCS: 36415; 71046; 80048; 83605; 84484; 85025; 93005; 93010; 96360; 99284; 99285; J7030

== ENCOUNTER 2024-08-23 07:49 | Day surgery (SDC) | payer MEDICARE ==
[2024-08-23] MEDS ORDERED: Propofol 200 MG/20 ML SDV ONE (08:10)
[2024-08-23] MEDS ORDERED: fentaNYL 100 MCG/2 ML SDV ONE (08:10)
[2024-08-23] MEDS: Lactated Ringers 1,000 ML IV SCH (08:30)
[2024-08-23 09:49] VITALS: BP 123/74; PULSE 59
== END 2024-08-23 10:15 | disposition home or self-care (01) ==
LOC: JP.SDS 07:49
PROVIDERS: ATTEND Family Medicine
DX: R13.12 Dysphagia, oropharyngeal phase (principal); I11.0 Hypertensive heart disease with heart failure; I50.9 Heart failure, unspecified; J44.9 Chronic obstructive pulmonary disease, unspecified; Z79.899 Other long term (current) drug therapy; Z88.5 Allergy status to narcotic agent; Z88.8 Allergy status to other drugs, medicaments and biological substances
CPT/HCPCS: 00731; 43235; J2704; J3010; J7120

== ENCOUNTER 2024-10-03 17:45 | Emergency (ER) | payer MEDICARE, BC ==
[2024-10-03 19:54] LABS: BASOPHILS ABSOLUTE AUTO 0.07 K/uL (0.00-0.10); BASOPHILS PERCENT AUTO 0.4 % (0.1-1.3); EOSINOPHILS ABSOLUTE AUTO 0.06 K/uL (0.00-0.40); EOSINOPHILS PERCENT AUTO 0.3 % (0.0-5.4); HEMATOCRIT 43.1 % (34.3-46.0); HEMOGLOBIN 13.9 g/dL (11.2-15.5); IMMATURE GRAN ABSOLUTE AUTO 0.09 K/uL (0.00-0.23); IMMATURE GRAN PERCENT AUTO 0.5 % (0.0-0.7); LYMPHOCYTES ABSOLUTE AUTO 3.33 K/uL (0.8-3.3); LYMPHOCYTES PERCENT AUTO 17.4 % (11.4-47.7); MEAN CORPUSCULAR HEMOGLOBIN 30.3 pg (31.6-35.5); MEAN CORPUSCULAR HGB CONC 32.3 g/dL (31.6-35.5); MEAN CORPUSCULAR VOLUME 93.9 fL (81.4-99.0); MONOCYTES ABSOLUTE AUTO 0.94 K/uL (0.20-0.90); MONOCYTES PERCENT AUTO 4.9 % (3.3-12.6); NEUTROPHILS ABSOLUTE AUTO 14.62 K/uL (1.0-7.6); NEUTROPHILS PERCENT AUTO 76.5 % (40.0-78.1); PLATELET COUNT,PLT 239 K/uL (130-375); RED BLOOD CELL COUNT 4.59 M/uL (3.77-5.24); WHITE BLOOD CELL COUNT,WBC 19.1 K/uL (3.2-11.0)
[2024-10-03 20:14] LABS: ALANINE AMINOTRANSFERASE,ALT 43 U/L (12-78); ALBUMIN 3.6 g/dL (3.4-5.0); ALKALINE PHOSPHATASE 124 U/L (46-116); ANION GAP 13.6 mmol/L (5.0-14.0); ASPARTATE AMNIOTRANSFERASE,AST 24 U/L (15-37); BILIRUBIN TOTAL 0.3 mg/dL (0.2-1.0); BLOOD UREA NITROGEN,BUN 44 mg/dL (7-18); C-REACTIVE PROTEIN 1.75 mg/dL (<0.50); CALCIUM 10.9 mg/dL (8.5-10.1); CARBON DIOXIDE,CO2 27 mmol/L (21-32); CHLORIDE,CL 103 mmol/L (100-108); CREATININE 1.7 mg/dL (0.6-1.0); EST CRCL DRUG DOSING (CG) 19.59 mL/min; ESTIMATED GFR 31 mL/min (>60); GLUCOSE RANDOM 107 mg/dL (74-106); POTASSIUM,K 5.6 mmol/L (3.6-5.2); PROTEIN TOTAL,TP 7.3 g/dL (6.4-8.2); SODIUM,NA 138 mmol/L (140-148)
[2024-10-03] MEDS: Sodium Chloride 0.9% 10 ML Syringe FLUSH ONE (20:34)
[2024-10-03] MEDS: Iopamidol 612 MG/ML 100 ML Bottle IV PRN (20:34)
[2024-10-03] MEDS: Sodium Chloride 0.9% 80 ML IV SCH (20:34)
[2024-10-03] MEDS: Sodium Chloride 0.9% 1,000 ML IV SCH (22:15)
[2024-10-03 22:55] VITALS: BP 129/58; PULSE 79
== END 2024-10-03 23:20 | disposition home or self-care (01) ==
LOC: JP.ED 17:45
DX: R10.9 Unspecified abdominal pain (principal); Z91.040 Latex allergy status; Z88.5 Allergy status to narcotic agent; Z88.8 Allergy status to other drugs, medicaments and biological substances; Z79.899 Other long term (current) drug therapy; Z86.16 Personal history of COVID-19
CPT/HCPCS: 36415; 74177; 80053; 83605; 83690; 84484; 85025; 86140; 96360; 99284; J7030; Q9967

== ENCOUNTER 2024-10-21 08:13 | Day surgery (SDC) | payer MEDICARE, BC ==
[2024-10-21] MEDS: Lactated Ringers 1,000 ML IV SCH (08:40)
[2024-10-21] MEDS ORDERED: fentaNYL 50 MCG/ML SDV ONE (09:24)
[2024-10-21] MEDS ORDERED: Propofol 200 MG/20 ML SDV ONE (09:25)
[2024-10-21 10:54] VITALS: BP 129/60; PULSE 105
== END 2024-10-21 11:18 | disposition home or self-care (01) ==
LOC: JP.SDS 08:13
PROVIDERS: ATTEND Surgery
DX: K57.30 Diverticulosis of large intestine without perforation or abscess without bleeding (principal); I11.0 Hypertensive heart disease with heart failure; I50.9 Heart failure, unspecified
CPT/HCPCS: 45378; J2704; J3010; J7120; 00811-QZ

== ENCOUNTER 2024-12-08 11:53 | Emergency (ER) | payer MEDICARE, BC ==
[2024-12-08 12:59] LABS: BASOPHILS ABSOLUTE AUTO 0.06 K/uL (0.00-0.10); BASOPHILS PERCENT AUTO 0.6 % (0.1-1.3); EOSINOPHILS ABSOLUTE AUTO 0.15 K/uL (0.00-0.40); EOSINOPHILS PERCENT AUTO 1.4 % (0.0-5.4); IMMATURE GRAN ABSOLUTE AUTO 0.04 K/uL (0.00-0.23); IMMATURE GRAN PERCENT AUTO 0.4 % (0.0-0.7); LYMPHOCYTES ABSOLUTE AUTO 2.35 K/uL (0.8-3.3); LYMPHOCYTES PERCENT AUTO 22.0 % (11.4-47.7); MONOCYTES ABSOLUTE AUTO 0.97 K/uL (0.20-0.90); MONOCYTES PERCENT AUTO 9.1 % (3.3-12.6); NEUTROPHILS ABSOLUTE AUTO 7.10 K/uL (1.0-7.6); NEUTROPHILS PERCENT AUTO 66.5 % (40.0-78.1); PLATELET COUNT,PLT 271 K/uL (130-375); RED BLOOD CELL COUNT 3.76 M/uL (3.77-5.24); WHITE BLOOD CELL COUNT,WBC 10.7 K/uL (3.2-11.0)
[2024-12-08 13:20] LABS: A/G RATIO 0.8 (1.2-2.2); ALANINE AMINOTRANSFERASE,ALT 26 U/L (12-78); ASPARTATE AMNIOTRANSFERASE,AST 18 U/L (15-37); BILIRUBIN TOTAL 0.3 mg/dL (0.2-1.0); BLOOD UREA NITROGEN,BUN 27 mg/dL (7-18); CARBON DIOXIDE,CO2 26 mmol/L (21-32); CHLORIDE,CL 105 mmol/L (100-108); CREATININE 0.9 mg/dL (0.6-1.0); EST CRCL DRUG DOSING (CG) 37.00 mL/min; ESTIMATED GFR 65 mL/min (>60); GLUCOSE RANDOM 93 mg/dL (74-106); POTASSIUM,K 4.0 mmol/L (3.6-5.2); PROTEIN TOTAL,TP 7.1 g/dL (6.4-8.2); SODIUM,NA 140 mmol/L (140-148)
[2024-12-08] MEDS: Sodium Chloride 0.9% 10 ML Syringe FLUSH ONE (14:34)
[2024-12-08] MEDS: Iopamidol 755 Mg/ML 100 ML Bottle IV ONE (14:34)
[2024-12-08 14:53] VITALS: BP 104/64; PULSE 66
[2024-12-08] MEDS ORDERED: LORazepam 2 MG/ML SDV IVPUSH ONE (17:37)
== END 2024-12-08 17:44 | disposition home or self-care (01) ==
LOC: JP.ED 11:53
DX: G45.9 Transient cerebral ischemic attack, unspecified (principal); I10 Essential (primary) hypertension; M19.90 Unspecified osteoarthritis, unspecified site; Z79.899 Other long term (current) drug therapy; Z91.040 Latex allergy status; Z88.8 Allergy status to other drugs, medicaments and biological substances; Z95.0 Presence of cardiac pacemaker; Z90.49 Acquired absence of other specified parts of digestive tract
CPT/HCPCS: 36415; 70450; 70496; 70498; 80053; 85025; 93005; 99285; A9270; Q9967

== ENCOUNTER 2024-12-20 13:28 | Emergency (ER) | payer MEDICARE, BC ==
[2024-12-20 15:28] LABS: BASOPHILS ABSOLUTE AUTO 0.08 K/uL (0.00-0.10); BASOPHILS PERCENT AUTO 0.5 % (0.1-1.3); EOSINOPHILS ABSOLUTE AUTO 0.29 K/uL (0.00-0.40); EOSINOPHILS PERCENT AUTO 1.8 % (0.0-5.4); IMMATURE GRAN ABSOLUTE AUTO 0.05 K/uL (0.00-0.23); IMMATURE GRAN PERCENT AUTO 0.3 % (0.0-0.7); LYMPHOCYTES ABSOLUTE AUTO 3.84 K/uL (0.8-3.3); LYMPHOCYTES PERCENT AUTO 23.5 % (11.4-47.7); MONOCYTES ABSOLUTE AUTO 1.15 K/uL (0.20-0.90); MONOCYTES PERCENT AUTO 7.0 % (3.3-12.6); NEUTROPHILS ABSOLUTE AUTO 10.95 K/uL (1.0-7.6); NEUTROPHILS PERCENT AUTO 66.9 % (40.0-78.1); PLATELET COUNT,PLT 271 K/uL (130-375); RED BLOOD CELL COUNT 4.24 M/uL (3.77-5.24); WHITE BLOOD CELL COUNT,WBC 16.4 K/uL (3.2-11.0)
[2024-12-20 15:43] VITALS: BP 114/68; PULSE 88
[2024-12-20 16:02] LABS: A/G RATIO 0.9 (1.2-2.2); ALANINE AMINOTRANSFERASE,ALT 24 U/L (12-78); ASPARTATE AMNIOTRANSFERASE,AST 18 U/L (15-37); BILIRUBIN TOTAL 0.2 mg/dL (0.2-1.0); BLOOD UREA NITROGEN,BUN 28 mg/dL (7-18); CARBON DIOXIDE,CO2 27 mmol/L (21-32); CHLORIDE,CL 103 mmol/L (100-108); CREATININE 1.0 mg/dL (0.6-1.0); EST CRCL DRUG DOSING (CG) 33.30 mL/min; ESTIMATED GFR 58 mL/min (>60); GLUCOSE RANDOM 93 mg/dL (74-106); POTASSIUM,K 5.1 mmol/L (3.6-5.2); PROTEIN TOTAL,TP 7.5 g/dL (6.4-8.2); SODIUM,NA 138 mmol/L (140-148)
== END 2024-12-20 17:34 | disposition home or self-care (01) ==
LOC: JP.ED 13:28
DX: G45.9 Transient cerebral ischemic attack, unspecified (principal); Z95.810 Presence of automatic (implantable) cardiac defibrillator; Z79.899 Other long term (current) drug therapy; Z91.040 Latex allergy status; Z88.5 Allergy status to narcotic agent; Z88.8 Allergy status to other drugs, medicaments and biological substances
CPT/HCPCS: 36415; 70450; 80053; 85025; 96360; 99284; J7030